=== PATIENT | female | born 1990 | race Caucasian/White ===

== ENCOUNTER 2021-03-23 01:49 | Emergency (ER) | payer OTHER ==
[2021-03-23 02:32] LABS: Urine Blood 1+ (Negative); Urine Glucose Negative (Negative); Urine Protein Negative (Negative)
[2021-03-23 02:50] LABS: Protime INR 0.93
[2021-03-23 02:51] LABS: Absolute Lymphocytes (CBC) 3.4 K/uL (0.7-4.9); Basophils % 0.7 % (0-1.3); Hematocrit 38.8 % (36.0-45.0); Lymphocytes % 32.1 % (15.3-44.8); MPV 8.9 fL (7.6-11.3); RBC Red Blood Cell Count 4.26 M/uL (3.86-4.86)
[2021-03-23 03:21] LABS: ALT/SGPT 43 U/L (12-78); AST/SGOT 21 U/L (15-37); Albumin 3.9 g/dL (3.4-5.0); Alkaline Phosphatase 82 U/L (45-117); BUN Blood Urea Nitrogen 12 mg/dL (7-18); Bicarbonate 23 mmol/L (21-32); Bilirubin Direct 0.1 mg/dL (0-0.2); Bilirubin Total 0.4 mg/dL (0.2-1.0); Glucose Level 73 mg/dL (74-106); Magnesium 1.9 mg/dL (1.8-2.4); NT PRO-BNP 62 pg/mL (<125); Potassium 3.5 mmol/L (3.5-5.1); Protein, Total 7.8 g/dL (6.4-8.2); Sodium Level 143 mmol/L (136-145); Troponin (Emerg Dept Use Only) < 0.02 ng/mL (0.0-0.045)
--- NOTE | 2021-03-23 05:27 | ER ---
Nurse's Notes [facility] Name: Adriel Curry Age: 30 yrs Sex: Female : 1990 Arrival Date: 03/23/2021 Time: 01:56 Bed 3 Private MD: Diagnosis: Nontraumatic subarachnoid hemorrhage, unspecified Presentation: 03/23 01:58 Chief complaint: Patient states: she was having intercourse and felt a sharp pain to as6 her chest and passed out, EMS states pt was unconscious for approx 3-4 minutes, on seen pt was confused, at time of triage pt is AAO X4. Coronavirus screen: At this time, the client does not indicate any symptoms associated with coronavirus-19. Ebola Screen: No symptoms or risks identified at this time. Initial Sepsis Screen: Does the patient meet any 2 criteria? No. Patient's initial sepsis screen is negative. Does the patient have a suspected source of infection? No. Patient's initial sepsis screen is negative. Risk Assessment: Do you want to hurt yourself or someone else? Patient reports no desire to harm self or others. Onset of symptoms was March 23, 2021. 01:58 Method Of Arrival: EMS: [facility] as6 01:58 Acuity: RUFINA 3 as6 02:05 Care prior to arrival: Glucose check: 127. 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 - Social history:: Smoking status: Patient denies any tobacco usage or history of. Screenin:05 Abuse screen: Denies threats or abuse. Nutritional screening: No deficits noted. as6 Tuberculosis screening: No symptoms or risk factors identified. Fall Risk None identified. Assessment: 02:05 General: Appears in no apparent distress. uncomfortable, Behavior is calm, cooperative, as6 drowsy. Pain: Complains of pain in diaphragm and right breast. 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 Cardiovascular: Reports chest pain, Capillary refill < 3 seconds Patient's skin is warm and dry. Respiratory: Airway is patent Trachea midline Respiratory effort is even, unlabored, Respiratory pattern is regular, symmetrical. Derm: Skin is intact, is healthy with good turgor. 03:00 Reassessment: Patient and/or family updated on plan of care and expected duration. Pain mk level reassessed. Patient is alert, oriented x 3, equal unlabored respirations, skin warm/dry/pink. Neuro: Level of Consciousness is awake, alert, obeys commands, Oriented to person, place, time, situation. Cardiovascular: Capillary refill < 3 seconds fingers toes Pulses are 2+ in right radial artery, right dorsalis pedis artery, left radial artery and left dorsalis pedis artery. Respiratory: Respiratory effort is even, unlabored, Respiratory pattern is regular, symmetrical. Derm:. 03:00 Cardiovascular: Reports syncope, Rhythm is sinus rhythm. Respiratory: mk 04:03 Reassessment: Patient and/or family updated on plan of care and expected duration. Pain mk level reassessed. Patient is alert, oriented x 3, equal unlabored respirations, skin warm/dry/pink. Patient states feeling better. 04:03 Neuro: Oriented to person, place, time, situation, Graphic Arts Instructor are equal bilaterally Gait is mk steady, Speech is normal, Facial symmetry appears normal, Pupils are PERRLA. 04:51 Neuro: Reports headache. GI: Reports diarrhea. as6 05:30 Reassessment: Patient and/or family updated on plan of care and expected duration. Pain mk level reassessed. Patient is alert, oriented x 3, equal unlabored respirations, skin warm/dry/pink. Reassessment: Patient and/or family updated on plan of care and expected duration. Pain level reassessed. Neuro: Level of Consciousness is awake, alert, obeys commands, Oriented to person, place, time, situation, Graphic Arts Instructor are equal bilaterally Facial symmetry appears normal, Pupils are PERRLA. Neuro: Facial symmetry appears normal, Pupils are PERRLA, Reports headache. Neuro: Graphic Arts Instructor are equal bilaterally Gait is steady, Facial symmetry appears normal, Pupils are PERRLA. Neuro: Gait is steady. Neuro:. 06:05 Reassessment: Patient and/or family updated on plan of care and expected duration. Pain mk level reassessed. Patient is alert, oriented x 3, equal unlabored respirations, skin warm/dry/pink. Neuro: Level of Consciousness is awake, alert, obeys commands, Oriented to person, place, time, situation. Vital Signs: 01:58 BP 126 / 83; Pulse 86; Resp 21 S; Temp 98.5(O); Pulse Ox 100% on R/A; Weight 63.5 kg as6 (R); Height 5 ft. 3 in. (160.02 cm) (R); Pain 3/10; 03:05 BP 124 / 77; Pulse 76; Resp 18; Pulse Ox 100% on R/A; mk 04:01 BP 109 / 73; Pulse 68; Resp 18 S; Pulse Ox 100% on R/A; as6 05:06 BP 114 / 79; Pulse 70; Resp 18; Pulse Ox 99% on R/A; mk 05:35 BP 126 / 70; Pulse 72; Resp 16; Pulse Ox 99% on R/A; mk 06:05 BP 99 / 67; Pulse 63; Resp 18; Pulse Ox 99% on R/A; mk 06:30 BP 116 / 74; Pulse 71; Resp 18; Pulse Ox 100% on R/A; mk 01:58 Body Mass Index 24.80 (63.50 kg, 160.02 cm) as6 [place] Coma Score: 03:05 Eye Response: spontaneous(4). Verbal Response: oriented(5). Motor Response: obeys mk commands(6). Total: 15. 04:01 Eye Response: spontaneous(4). Verbal Response: oriented(5). Motor Response: obeys mk commands(6). Total: 15. 05:06 Eye Response: spontaneous(4). Verbal Response: oriented(5). Motor Response: obeys mk commands(6). Total: 15. 06:05 Eye Response: spontaneous(4). Verbal Response: oriented(5). Motor Response: obeys mk commands(6). Total: 15. 06:05 Eye Response: spontaneous(4). Verbal Response: oriented(5). Motor Response: obeys mk commands(6). Total: 15. 06:35 Eye Response: spontaneous(4). Verbal Response: oriented(5). Motor Response: obeys mk commands(6). Total: 15. ED Course: 01:56 Patient arrived in ED. bp1 01:58 Patrick Fernandez, RN is Primary Nurse. as6 02:01 Pam Almonte MD is Attending Physician. sp3 02:02 Triage completed. as6 02:04 Arm band placed on. as6 02:06 Bed in low position. Call light in reach. Side rails up X2. vehicle monitor technician on. Pulse as6 ox on. NIBP on. 02:15 No provider procedures requiring assistance completed. Inserted saline lock: 20 gauge mk in left antecubital area, using aseptic technique. Accessed. 02:48 CT Head Brain wo Cont In Process Unspecified. EDMS 02:48 CT Chest For PE Angio In Process Unspecified. EDMS 02:48 Abdomen W Contrast In Process Unspecified. EDMS 04:22 COVID-19 SARS RT PCR (Document "Date of Onset" if Symptomatic) Sent. as6 06:59 Patient transferred, IV remains in place. mk Administered Medications: No medications were administered Outcome: 05:27 ER care complete, transfer ordered by . sp3 06:58 Discharged to 06:58 Transferred by ground EMS to [facility]. 06:58 critical 06:58 Instructed on the need for transfer. 07:00 Patient left the ED. Signatures: Dispatcher [employer] EDMS Palak Caldwell bp1 Pam Almonte MD MD sp3 Patrick Fernandez, RN RN as6 Rylee Palmer RN RN ameya Corrections: (The following items were deleted from the chart) 04:16 04:15 BP 124 / 77; Pulse 76bpm; Resp 18bpm; Pulse Ox 100% RA; mk mk 06:58 02:05 Neuro: Level of Consciousness is awake, alert, obeys commands, Oriented to mk person, place, time, situation, as6 06:58 04:03 Reassessment: Patient and/or family updated on plan of care and expected mk duration. Pain level reassessed. Patient is alert, oriented x 3, equal unlabored respirations, skin warm/dry/pink. Patient states feeling better. as6
--- NOTE | 2021-03-23 05:27 | EDPHYS ---
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 Patient's boyfriend activated EMS and when they arrived patient was weak but coherent with mild tachycardia and continued mild chest pain but no other symptoms. Patient states that the pain is sharp. During the work-up for her vocal cord mass, patient did have a CT scan of the abdomen and pelvis performed which demonstrated "2 lesions on the liver" and gallstones. Patient has not had this or of pain in the past. On review of systems patient denies significant headache, neck pain, back pain, shortness of breath, abdominal pain (though right upper quadrant abdominal pain may be present), dysuria, vomiting, diarrhea, numbness or tingling, change in urine output, or any other review of systems at this time.. 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 - Social history:: Smoking status: Patient denies any tobacco usage or history of. ROS: 02:14 Constitutional: Negative for fever, chills, and weight loss, Eyes: Negative for injury, sp3 pain, redness, and discharge, ENT: Negative for injury, pain, and discharge, Neck: Negative for injury, pain, and swelling, Respiratory: Negative for shortness of breath, cough, wheezing, and pleuritic chest pain, Abdomen/GI: Negative for abdominal pain, nausea, vomiting, diarrhea, and constipation, MS/Extremity: Negative for injury and deformity, Skin: Negative for injury, rash, and discoloration, Psych: Negative for depression, anxiety, suicide ideation, homicidal ideation, and hallucinations, Endocrine: Negative for neck swelling, polydipsia, polyuria, polyphagia, and marked weight changes, Hematologic/Lymphatic: Negative for swollen nodes, abnormal bleeding, and unusual bruising. 02:14 All other systems are negative. Exam: 02:14 Constitutional: This is a well developed, well nourished patient who is awake, alert, sp3 and in no acute distress. Head/Face: Normocephalic, atraumatic. Eyes: Pupils equal round and reactive to light, extra-ocular motions intact. Lids and lashes normal. Conjunctiva and sclera are non-icteric and not injected. Cornea within normal limits. Periorbital areas with no swelling, redness, or edema. ENT: Nares patent. No nasal discharge, no septal abnormalities noted. External auditory canals are clear. Oropharynx with no redness, swelling, or masses, exudates, or evidence of obstruction, uvula midline. Mucous membranes moist. Neck: Trachea midline, no thyromegaly or masses palpated, and no cervical lymphadenopathy. Supple, full range of motion without nuchal rigidity, or vertebral point tenderness. No Meningismus. Chest/axilla: Normal chest wall appearance and motion. Nontender with no deformity. No lesions are appreciated. Cardiovascular: Regular rate and rhythm with a normal S1 and S2. No gallops, murmurs, or rubs. Normal PMI, no JVD. No pulse deficits. Respiratory: Lungs have equal breath sounds bilaterally, clear to auscultation and percussion. No rales, rhonchi or wheezes noted. No increased work of breathing, no retractions or nasal flaring. Back: No spinal tenderness. No costovertebral tenderness. Full range of motion. Skin: Warm, dry with normal turgor. Normal color with no rashes, no lesions, and no evidence of cellulitis. MS/ Extremity: Pulses equal, no cyanosis. Neurovascular intact. Full, normal range of motion. Neuro: Awake and alert, GCS 15, oriented to person, place, time, and situation. Cranial nerves II-XII grossly intact. Motor strength 5/5 in all extremities. Sensory grossly intact. Cerebellar exam normal. Normal gait. Psych: Awake, alert, with orientation to person, place and time. Behavior, mood, and affect are within normal limits. 02:14 Abdomen/GI: Patient has mild right upper quadrant pain on deep palpation. It is the same pain she describes as in her "chest" on the right lower side. Lung exams are normal bilaterally. Cardiac exam is also normal with no murmurs rubs or gallops.. 02:17 ECG was reviewed by the Attending Physician. EKG demonstrates normal sinus rhythm 98 sp3 bpm with normal intervals, normal axis, normal QRS, nonspecific ST/T changes without evidence of acute ischemia. Vital Signs: 01:58 BP 126 / 83; Pulse 86; Resp 21 S; Temp 98.5(O); Pulse Ox 100% on R/A; Weight 63.5 kg as6 (R); Height 5 ft. 3 in. (160.02 cm) (R); Pain 3/10; 03:05 BP 124 / 77; Pulse 76; Resp 18; Pulse Ox 100% on R/A; mk 04:01 BP 109 / 73; Pulse 68; Resp 18 S; Pulse Ox 100% on R/A; as6 05:06 BP 114 / 79; Pulse 70; Resp 18; Pulse Ox 99% on R/A; mk 05:35 BP 126 / 70; Pulse 72; Resp 16; Pulse Ox 99% on R/A; mk 06:05 BP 99 / 67; Pulse 63; Resp 18; Pulse Ox 99% on R/A; mk 06:30 BP 116 / 74; Pulse 71; Resp 18; Pulse Ox 100% on R/A; mk 01:58 Body Mass Index 24.80 (63.50 kg, 160.02 cm) as6 [place] Coma Score: 03:05 Eye Response: spontaneous(4). Verbal Response: oriented(5). Motor Response: obeys mk commands(6). Total: 15. 04:01 Eye Response: spontaneous(4). Verbal Response: oriented(5). Motor Response: obeys mk commands(6). Total: 15. 05:06 Eye Response: spontaneous(4). Verbal Response: oriented(5). Motor Response: obeys mk commands(6). Total: 15. 06:05 Eye Response: spontaneous(4). Verbal Response: oriented(5). Motor Response: obeys mk commands(6). Total: 15. 06:05 Eye Response: spontaneous(4). Verbal Response: oriented(5). Motor Response: obeys mk commands(6). Total: 15. 06:35 Eye Response: spontaneous(4). Verbal Response: oriented(5). Motor Response: obeys mk commands(6). Total: 15. MDM: 02:01 Patient medically screened. sp3 02:15 Data reviewed: vital signs, nurses notes. ED course: 30-year-old female with chest pain sp3 and near syncope during intercourse. Differential diagnosis includes pulmonary embolism, cortical/exertional syncope, cholelithiasis, cholecystitis, dehydration. At this time I am not highly suspicious for acute coronary syndrome, CVA, vascular compromise, sepsis, shock, any other critical findings. Will obtain CT scan of the chest with abdomen runoff, standard laboratory values, EKG. Patient declined pain medications at this time. We will keep n.p.o. pending remainder of work-up and ultimate disposition.. 04:09 ED course: Patient CT scan of the head demonstrates a small left subarachnoid sp3 hemorrhage along the left frontal convexity. There is no midline shift or significant bleed. Patient's blood pressure vital signs are normal patient is resting comfortably with a mild headache. [facility] and treatment.. 05:21 ED course: Discussed with Dr. Lua on behalf of Dr. Mar at [facility] who sp3 has graciously accepted this patient.. 03/23 02:03 Order name: Basic Metabolic Panel sp3 03/23 02:03 Order name: CBC with Diff; Complete Time: 03:18 sp3 03/23 02:03 Order name: LFT's; Complete Time: 03:49 sp3 03/23 02:03 Order name: Magnesium; Complete Time: 03:49 sp3 03/23 02:03 Order name: NT PRO-BNP; Complete Time: 03:49 sp3 03/23 02:03 Order name: PT-INR; Complete Time: 03:18 sp3 03/23 02:03 Order name: Troponin (emerg Dept Use Only); Complete Time: 03:49 sp3 03/23 02:03 Order name: CT Head Brain wo Cont sp3 03/23 02:03 Order name: Basic Metabolic Panel; Complete Time: 03:49 EDMS 03/23 02:31 Order name: Urine Dipstick-Ancillary; Complete Time: 03:18 EDMS 03/23 02:41 Order name: Urine --Ancillary (enter results) cs9 03/23 02:42 Order name: Urine --Ancillary EDMS 03/23 03:25 Order name: CREATININE WHOLE BLOOD; Complete Time: 03:49 EDMS 03/23 04:16 Order name: COVID-19 SARS RT PCR (Document "Date of Onset" if Symptomatic) as6 03/23 02:03 Order name: EKG; Complete Time: 02:03 sp3 03/23 02:03 Order name: Cardiac monitoring; Complete Time: 02:04 sp3 03/23 02:03 Order name: EKG - Nurse/Tech; Complete Time: 02:04 sp3 03/23 02:03 Order name: IV Saline Lock; Complete Time: 02:09 sp3 03/23 02:03 Order name: Labs collected and sent; Complete Time: 02:34 sp3 03/23 02:03 Order name: O2 Per Protocol; Complete Time: 02:04 sp3 03/23 02:03 Order name: O2 Sat Monitoring; Complete Time: 02:04 sp3 03/23 02:03 Order name: CT Chest For PE Angio sp3 03/23 02:03 Order name: NPO; Complete Time: 02:09 sp3 03/23 02:03 Order name: Urine Dipstick-Ancillary (obtain specimen); Complete Time: 02:31 sp3 03/23 02:03 Order name: Urine Test (obtain specimen); Complete Time: 02:31 sp3 03/23 02:13 Order name: Abdomen W Contrast EDMS Administered Medications: No medications were administered Disposition Summary: 03/23/21 05:27 Transfer Ordered Transfer Location: [facility] sp3 Reason: Higher level of care sp3 Condition: Stable sp3 Problem: new sp3 Symptoms: are unchanged sp3 Accepting Physician: Dr. Magdaleno(03/23/21 07:00) mk Diagnosis - Nontraumatic subarachnoid hemorrhage, unspecified sp3 Forms: - Medication Reconciliation Form sp3 - SBAR form sp3 Signatures: Dispatcher [employer] EDMS Pam Almonte, MD MD sp3 Patrick Fernandez RN RN as6 Rylee Palmer RN RN mk Corrections: (The following items were deleted from the chart) 07:00 05:27 Dr. Sharla avalos mk 07:00 07:00 Dr. Sharla hou mk
[2021-03-23 07:07] VITALS: TEMP 98.5
[2021-03-23 07:16] VITALS: BP 116/74; O2SAT 100
--- NOTE | 2021-03-23 11:01 | RAD REPORT ---
EXAM DESCRIPTION: CT - Abdomen W Contrast - 03/23/2021 6:23 am ADDENDUM #1 THIS REPORT CONTAINS FINDINGS THAT MAY BE CRITICAL TO PATIENT CARE: The findings were verbally discu ssed via telephone conference with Dr. Almonte by Dr. Nahid Spain on 03/23/2021 4:01 AM CLINICAL EDUCATION MANAGER .Th e results were acknowledged and understood. Electronically signed by: Nahid Spain MD 03/23/2021 6:46 AM CLINICAL EDUCATION MANAGER End of Addendum EXAM DESCRIPTION: CT Head Without Intravenous Contrast CLINICAL HISTORY: The patient is 30 years old and is Female; ABD PAIN TECHNIQUE: Axial computed tomography images of the head/brain without intravenous contrast. Sagitt al and coronal reformatted images were created and reviewed. This CT exam was performed using one o r more of the following dose reduction techniques: automated exposure control, adjustment of the mA and/or kV according to patient size, and/or use of iterative reconstruction technique. COMPARISON: No relevant prior studies available. FINDINGS: Brain: Small focus of acute subarachnoid hemorrhage along the left frontal convexity, im age 14 series 201, image 19 series 203. Ventricles: Unremarkable. No ventriculomegaly. Bones/joints: Unremarkable. No acute fracture. Soft tissues: Unremarkable. Sinuses: Unremarkable as visualized. Mastoid air cells: Unremarkable as visualized. No mastoid effusion. * A single impression for all exams can be found at the end of this report EXAM DESCRIPTION: CT Angiography Chest With Intravenous Contrast CLINICAL HISTORY: The patient is 30 years old and is Female; ABD PAIN TECHNIQUE: Axial computed tomographic angiography images of the chest with intravenous contrast. Sagittal and coronal reformatted images were created and reviewed. This CT exam was performed usin g one or more of the following dose reduction techniques: automated exposure control, adjustment of the mA and/or kV according to patient size, and/or use of iterative reconstruction technique. MIP reconstructed images were created and reviewed. COMPARISON: No relevant prior studies available. FINDINGS: Pulmonary arteries: Unremarkable. No pulmonary embolism. Aorta: No acute findings. No thoracic aortic aneurysm. Lungs: Unremarkable. No mass. No consolidation. Pleural space: Unremarkable. No significant effusion. No pneumothorax. Heart: Unremarkable. No cardiomegaly. No significant pericardial effusion. No evidence of RV dysfunction. Bones/joints: No acute fracture. No dislocation. Soft tissues: Unremarkable. Lymph nodes: Unremarkable. No enlarged lymph nodes. * A single impression for all exams can be found at the end of this report EXAM DESCRIPTION: CT Abdomen With Intravenous Contrast CLINICAL HISTORY: The patient is 30 years old and is Female; ABD PAIN TECHNIQUE: Axial computed tomography images of the abdomen with intravenous contrast. Sagittal and coronal reformatted images were created and reviewed. This CT exam was performed using one or more of the following dose reduction techniques: automated exposure control, adjustment of the mA and/o r kV according to patient size, and/or use of iterative reconstruction technique. COMPARISON: No relevant prior studies available. FINDINGS: Lung bases: Unremarkable. No mass. No consolidation. Liver: Unremarkable. No mass. Gallbladder and bile ducts: Unremarkable. No calcified stones. No ductal dilation. Pancreas: Unremarkable. No mass. No ductal dilation. Spleen: Unremarkable. No splenomegaly. Adrenals: Unremarkable. No mass. Kidneys and ureters: Unremarkable. No solid mass. No hydronephrosis. Stomach and bowel: Unremarkable. No obstruction. No mucosal thickening. Intraperitoneal space: Unremarkable. No free air. No significant fluid collection. Bones/joints: No acute fracture. No dislocation. Soft tissues: Unremarkable. Vasculature: Unremarkable. No abdominal aortic aneurysm. Lymph nodes: Unremarkable. No enlarged lymph nodes. * A single impression for all exams can be found at the end of this report IMPRESSION: CT Head Without Intravenous Contrast: Small focus of acute subarachnoid hemorrhage along the left frontal convexity, image 14 series 201 , image [address] Angiography Chest With Intravenous Contrast: No acute finding in chest. CT Abdomen With Intravenous Contrast: No acute finding in the abdomen. Electronically signed by: Nahid Spain MD 03/23/2021 3:46 AM CLINICAL EDUCATION MANAGER Due to temporary technical issues with the PACS/Fluency reporting system, reports are being signed by the in house radiologist without review as a courtesy to ensure prompt reporting. The interpreting r adiologist is fully responsible for the content of the report.
--- NOTE | 2021-03-23 11:03 | RAD REPORT ---
EXAM DESCRIPTION: CT - Chest For Pe Angio - 03/23/2021 6:24 am ADDENDUM #1 THIS REPORT CONTAINS FINDINGS THAT MAY BE CRITICAL TO PATIENT CARE: The findings were verbally discu ssed via telephone conference with Dr. Almonte by Dr. Nahid Spain on 03/23/2021 4:01 AM POCKETED SPRING MACHINE OPERATOR .Th e results were acknowledged and understood. Electronically signed by: Nahid Spain MD 03/23/2021 6:46 AM POCKETED SPRING MACHINE OPERATOR End of Addendum EXAM DESCRIPTION: CT Head Without Intravenous Contrast CLINICAL HISTORY: The patient is 30 years old and is Female; ABD PAIN TECHNIQUE: Axial computed tomography images of the head/brain without intravenous contrast. Sagitt al and coronal reformatted images were created and reviewed. This CT exam was performed using one o r more of the following dose reduction techniques: automated exposure control, adjustment of the mA and/or kV according to patient size, and/or use of iterative reconstruction technique. COMPARISON: No relevant prior studies available. FINDINGS: Brain: Small focus of acute subarachnoid hemorrhage along the left frontal convexity, im age 14 series 201, image 19 series 203. Ventricles: Unremarkable. No ventriculomegaly. Bones/joints: Unremarkable. No acute fracture. Soft tissues: Unremarkable. Sinuses: Unremarkable as visualized. Mastoid air cells: Unremarkable as visualized. No mastoid effusion. * A single impression for all exams can be found at the end of this report EXAM DESCRIPTION: CT Angiography Chest With Intravenous Contrast CLINICAL HISTORY: The patient is 30 years old and is Female; ABD PAIN TECHNIQUE: Axial computed tomographic angiography images of the chest with intravenous contrast. S agittal and coronal reformatted images were created and reviewed. This CT exam was performed using one or more of the following dose reduction techniques: automated exposure control, adjustment of t he mA and/or kV according to patient size, and/or use of iterative reconstruction technique. MIP rec onstructed images were created and reviewed. COMPARISON: No relevant prior studies available. FINDINGS: Pulmonary arteries: Unremarkable. No pulmonary embolism. Aorta: No acute findings. No thoracic aortic aneurysm. Lungs: Unremarkable. No mass. No consolidation. Pleural space: Unremarkable. No significant effusion. No pneumothorax. Heart: Unremarkable. No cardiomegaly. No significant pericardial effusion. No evidence of RV dysfunction. Bones/joints: No acute fracture. No dislocation. Soft tissues: Unremarkable. Lymph nodes: Unremarkable. No enlarged lymph nodes. * A single impression for all exams can be found at the end of this report EXAM DESCRIPTION: CT Abdomen With Intravenous Contrast CLINICAL HISTORY: The patient is 30 years old and is Female; ABD PAIN TECHNIQUE: Axial computed tomography images of the abdomen with intravenous contrast. Sagittal and coronal reformatted images were created and reviewed. This CT exam was performed using one or more of the following dose reduction techniques: automated exposure control, adjustment of the mA and/or kV according to patient size, and/or use of iterative reconstruction technique. COMPARISON: No relevant prior studies available. FINDINGS: Lung bases: Unremarkable. No mass. No consolidation. Liver: Unremarkable. No mass. Gallbladder and bile ducts: Unremarkable. No calcified stones. No ductal dilation. Pancreas: Unremarkable. No mass. No ductal dilation. Spleen: Unremarkable. No splenomegaly. Adrenals: Unremarkable. No mass. Kidneys and ureters: Unremarkable. No solid mass. No hydronephrosis. Stomach and bowel: Unremarkable. No obstruction. No mucosal thickening. Intraperitoneal space: Unremarkable. No free air. No significant fluid collection. Bones/joints: No acute fracture. No dislocation. Soft tissues: Unremarkable. Vasculature: Unremarkable. No abdominal aortic aneurysm. Lymph nodes: Unremarkable. No enlarged lymph nodes. * A single impression for all exams can be found at the end of this report IMPRESSION: CT Head Without Intravenous Contrast: Small focus of acute subarachnoid hemorrhage along the left frontal convexity, image 14 series 201 , image [address] Angiography Chest With Intravenous Contrast: No acute finding in chest. CT Abdomen With Intravenous Contrast: No acute finding in the abdomen. Electronically signed by: Nahid Spain MD 03/23/2021 3:46 AM POCKETED SPRING MACHINE OPERATOR Due to temporary technical issues with the PACS/Fluency reporting system, reports are being signed by the in house radiologist without review as a courtesy to ensure prompt reporting. The interpreting r adiologist is fully responsible for the content of the report.
--- NOTE | 2021-03-23 11:04 | RAD REPORT ---
EXAM DESCRIPTION: CT - Head Brain Wo Cont - 03/23/2021 6:25 am ADDENDUM #1 THIS REPORT CONTAINS FINDINGS THAT MAY BE CRITICAL TO PATIENT CARE: The findings were verbally discu ssed via telephone conference with Dr. Almonte by Dr. Nahid Spain on 03/23/2021 4:01 AM PLASMA PROCESSING TECHNICIAN .Th e results were acknowledged and understood. Electronically signed by: Nahid Spain MD 03/23/2021 6:46 AM PLASMA PROCESSING TECHNICIAN End of Addendum EXAM DESCRIPTION: CT Head Without Intravenous Contrast CLINICAL HISTORY: The patient is 30 years old and is Female; ABD PAIN TECHNIQUE: Axial computed tomography images of the head/brain without intravenous contrast. Sagitt al and coronal reformatted images were created and reviewed. This CT exam was performed using one o r more of the following dose reduction techniques: automated exposure control, adjustment of the mA and/or kV according to patient size, and/or use of iterative reconstruction technique. COMPARISON: No relevant prior studies available. FINDINGS: Brain: Small focus of acute subarachnoid hemorrhage along the left frontal convexity, im age 14 series 201, image 19 series 203. Ventricles: Unremarkable. No ventriculomegaly. Bones/joints: Unremarkable. No acute fracture. Soft tissues: Unremarkable. Sinuses: Unremarkable as visualized. Mastoid air cells: Unremarkable as visualized. No mastoid effusion. * A single impression for all exams can be found at the end of this report EXAM DESCRIPTION: CT Angiography Chest With Intravenous Contrast CLINICAL HISTORY: The patient is 30 years old and is Female; ABD PAIN TECHNIQUE: Axial computed tomographic angiography images of the chest with intravenous contrast. S agittal and coronal reformatted images were created and reviewed. This CT exam was performed using one or more of the following dose reduction techniques: automated exposure control, adjustment of t he mA and/or kV according to patient size, and/or use of iterative reconstruction technique. MIP rec onstructed images were created and reviewed. COMPARISON: No relevant prior studies available. FINDINGS: Pulmonary arteries: Unremarkable. No pulmonary embolism. Aorta: No acute findings. No thoracic aortic aneurysm. Lungs: Unremarkable. No mass. No consolidation. Pleural space: Unremarkable. No significant effusion. No pneumothorax. Heart: Unremarkable. No cardiomegaly. No significant pericardial effusion. No evidence of RV dysfunction. Bones/joints: No acute fracture. No dislocation. Soft tissues: Unremarkable. Lymph nodes: Unremarkable. No enlarged lymph nodes. * A single impression for all exams can be found at the end of this report EXAM DESCRIPTION: CT Abdomen With Intravenous Contrast CLINICAL HISTORY: The patient is 30 years old and is Female; ABD PAIN TECHNIQUE: Axial computed tomography images of the abdomen with intravenous contrast. Sagittal and coronal reformatted images were created and reviewed. This CT exam was performed using one or more of the following dose reduction techniques: automated exposure control, adjustment of the mA and/or kV according to patient size, and/or use of iterative reconstruction technique. COMPARISON: No relevant prior studies available. FINDINGS: Lung bases: Unremarkable. No mass. No consolidation. Liver: Unremarkable. No mass. Gallbladder and bile ducts: Unremarkable. No calcified stones. No ductal dilation. Pancreas: Unremarkable. No mass. No ductal dilation. Spleen: Unremarkable. No splenomegaly. Adrenals: Unremarkable. No mass. Kidneys and ureters: Unremarkable. No solid mass. No hydronephrosis. Stomach and bowel: Unremarkable. No obstruction. No mucosal thickening. Intraperitoneal space: Unremarkable. No free air. No significant fluid collection. Bones/joints: No acute fracture. No dislocation. Soft tissues: Unremarkable. Vasculature: Unremarkable. No abdominal aortic aneurysm. Lymph nodes: Unremarkable. No enlarged lymph nodes. * A single impression for all exams can be found at the end of this report IMPRESSION: CT Head Without Intravenous Contrast: Small focus of acute subarachnoid hemorrhage along the left frontal convexity, image 14 series 201 , image [address] Angiography Chest With Intravenous Contrast: No acute finding in chest. CT Abdomen With Intravenous Contrast: No acute finding in the abdomen. Electronically signed by: Nahid Spain MD 03/23/2021 3:46 AM PLASMA PROCESSING TECHNICIAN Due to temporary technical issues with the PACS/Fluency reporting system, reports are being signed by the in house radiologist without review as a courtesy to ensure prompt reporting. The interpreting r adiologist is fully responsible for the content of the report.
== END 2021-03-23 07:00 | disposition short-term general hospital (02) ==
LOC: ER 01:49
DX: I60.9 Nontraumatic subarachnoid hemorrhage, unspecified (principal); Z88.5 Allergy status to narcotic agent; Z20.822 Contact with and (suspected) exposure to COVID-19
CPT/HCPCS: 93005; 85025; 80048; 36415; 83735; 81025; 85610; 82565; 80076; 81003; 84484; 83880; 74160; 70450; 71275; 99285; U0003; Q9967

== ENCOUNTER 2022-01-06 13:08 | Emergency (ER) | payer BC, OTHER ==
[2022-01-06] MEDS ORDERED: LEVETIRACETAM 500 MG/5 ML VIAL IV ONE (13:28)
[2022-01-06] MEDS ORDERED: NA CHLORIDE 0.9% 100 ML IV ONE (13:34)
[2022-01-06 13:57] LABS: SARS-CoV-2 Antigen Rapid Res Negative (Negative)
--- NOTE | 2022-01-06 13:57 | RAD REPORT ---
EXAM DESCRIPTION: CT - Ct Stroke Brain Wo Cont - 01/06/2022 1:48 pm CLINICAL HISTORY: hx of bleed with watson, provided clinical history indicates subarachnoid hemorrhage e vent (March 2021) with patient reporting aneurysm diagnosis. No history of surgical repair for end ovascular fixation of an aneurysm. COMPARISON: Head Brain Wo Cont dated 03/23/2021 TECHNIQUE: Axial 5 millimeter thick images of the head were obtained without IV contrast. All CT scans are performed using dose optimization technique as appropriate and may include automated exposure control or mA/KV adjustment according to patient size. FINDINGS: No subarachnoid hemorrhage is identified. In the area of subarachnoid hemorrhage reported on the March 2021 CT, no acute finding is seen. No acute cortical based infarction, cortical edema or sulcal effacement seen. No extra-axial fluid collections. Flores matter-white matter differentiati on is preserved.Ventricles are normal. Visualized portions of the mastoid air cells, paranasal sinuses, and orbits are unremarkable. Findings telephoned to Adrianna Davila 1331 hours. IMPRESSION: No CT evidence of acute intracranial process. No findings for recurrence of the previously detailed subarachnoid hemorrhage.
[2022-01-06 14:19] LABS: Absolute Lymphocytes (CBC) 2.6 K/uL (0.7-4.9); Hematocrit 39.4 % (36.0-45.0); Lymphocytes % 28.7 % (15.3-44.8); MPV 8.9 fL (7.6-11.3); RBC Red Blood Cell Count 4.38 M/uL (3.86-4.86)
[2022-01-06 14:24] LABS: Protime INR 1.04
[2022-01-06 14:32] LABS: Potassium 3.7 mmol/L (3.5-5.1)
--- NOTE | 2022-01-06 14:32 | RAD REPORT ---
EXAM DESCRIPTION: CT - Head angio - 01/06/2022 2:13 pm CLINICAL HISTORY: Headache, subarachnoid hemorrhage reported on a March 2021 CT. Patient was guzman sferred at time of the March 2021 event. Patient reports and aneurysm diagnosis but there has been no apparent treatment. TECHNIQUE: During dynamic enhancement using nonionic IV contrast, axial 1 millimeter thick images of the head were obtained. Sagittal and axial reconstruction images were generated using MIP technique and reviewed. All CT scans are performed using dose optimization technique as appropriate and may include automated exposure control or mA/KV adjustment according to patient size.Sign COMPARISON: CT head 01/06/2022, CT head 03/23/2021 FINDINGS: No aneurysm clip or endovascular coils identifiable. No aneurysm is identified. No vascular malformation seen. Major venous sinuses are patent. No stenosis, named branch occlusion, vasculitis or other significant vascular finding identifiable. The right A1 anterior cerebral artery segment is dominant with a small left A1 RAMONA. Anterior communic ating artery is present. This is a normal anatomic configuration. Patient has a small left P1 posteri or cerebral artery segment. Left posterior communicating artery supplies much of the left EXTRUSION DIE REPAIR MANAGER circula tion. Again, this is normal anatomic variation. IMPRESSION: No aneurysm or vascular malformation identified. No correlate is identifiable for the p atient reported aneurysm diagnosis. No vascular malformation or abnormal vascular finding. No endovascular coils or aneurysm clip present .
--- NOTE | 2022-01-06 14:37 | RAD REPORT ---
EXAM DESCRIPTION: RAD - Chest Single View - 01/06/2022 2:32 pm CLINICAL HISTORY: COUGH, Stroke protocol chest film COMPARISON: CT chest March 2021 TECHNIQUE: AP portable chest image was obtained 01/06/2022 2:32 pm . FINDINGS: Lungs are clear. Heart and vasculature are normal. No measurable pleural effusion and no p neumothorax. No acute bony abnormality seen. No acute aortic findings suspected. IMPRESSION: No acute cardiopulmonary process.
[2022-01-06] MEDS ORDERED: ACETAMIN/CAFFEINE/BUTALB TAB PO ONE (14:53)
[2022-01-06] MEDS ORDERED: KETOROLAC 30 MG/ML INJ ONE (14:54)
[2022-01-06 16:00] LABS: Urine Blood Negative (Negative); Urine Glucose Negative (Negative); Urine Protein Negative (Negative); Urine Specific Gravity 1.015 (1.005-1.030); Urine pH 7.5 (5.0-7.0)
[2022-01-06 16:15] LABS: Barbiturates NEGATIVE (NEGATIVE); Benzodiazepines NEGATIVE (NEGATIVE); Cocaine NEGATIVE (NEGATIVE); METHAMPHETAM NEGATIVE (NEGATIVE); Methadone NEGATIVE (NEGATIVE); Opiates NEGATIVE (NEGATIVE); Phencyclidine NEGATIVE (NEGATIVE); THC Cannibis NEGATIVE (NEGATIVE)
[2022-01-06 17:25] LABS: Urine Specific Gravity/Preg 1.015 (1.005-1.030)
[2022-01-06] MEDS ORDERED: MAGNESIUM SULFATE 1 gm IVPB 1 GM/100 ML BAG IV ONE (18:03)
--- NOTE | 2022-01-06 19:23 | EDPHYS ---
Physician Documentation [facility] Name: Adriel Curry Age: 31 yrs Sex: Female : 1990 Arrival Date: 01/06/2022 Time: 13:08 Bed 2 Private MD: Dinah Copeland ED Physician Lia Diaz HPI: 01/06 13:23 This 31 yrs old Female presents to ER via Ambulatory with complaints of Headache, snw Dizziness, Blurred Vision. 13:23 The patient complains of pain to the top of head and forehead. The patient describes snw the headache as pounding. Onset: The symptoms/episode began/occurred suddenly, yesterday. Associated signs and symptoms: Pertinent positives: dizziness, malaise, blurred vision. Severity of symptoms: At its worst the pain was moderate, severe, in the emergency department the pain is unchanged. Headache History: Other prior ruptured aneurysm. The patient has experienced a previous episode. The patient has not recently seen a physician. 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 - Social history:: Smoking status: Patient denies any tobacco usage or history of. ROS: 13:21 ENT: Negative for injury, pain, and discharge, Neck: Negative for injury, pain, and snw swelling, Cardiovascular: Negative for chest pain, palpitations, and edema, Respiratory: Negative for shortness of breath, cough, wheezing, and pleuritic chest pain, Abdomen/GI: Negative for abdominal pain, nausea, vomiting, diarrhea, and constipation, Back: Negative for injury and pain, : Negative for injury, bleeding, discharge, and swelling. 13:21 Skin: Negative for injury, rash, and discoloration, Neuro: Negative for headache, weakness, numbness, tingling, and seizure, Psych: Negative for depression, anxiety, suicide ideation, homicidal ideation, and hallucinations. 13:21 Constitutional: Positive for fatigue, malaise. 13:21 Eyes: Positive for blurry vision, visual disturbance. 13:21 MS/extremity: Positive for paresthesias. 13:21 Neuro: Positive for headache, tingling, weakness. Exam: 13:18 Head/Face: Normocephalic, atraumatic. Eyes: Pupils equal round and reactive to light, snw extra-ocular motions intact. Lids and lashes normal. Conjunctiva and sclera are non-icteric and not injected. Cornea within normal limits. Periorbital areas with no swelling, redness, or edema. ENT: Nares patent. No nasal discharge, no septal abnormalities noted. Tympanic membranes are normal and external auditory canals are clear. Oropharynx with no redness, swelling, or masses, exudates, or evidence of obstruction, uvula midline. Mucous membranes moist. Neck: Trachea midline, no thyromegaly or masses palpated, and no cervical lymphadenopathy. Supple, full range of motion without nuchal rigidity, or vertebral point tenderness. No Meningismus. Chest/axilla: Normal chest wall appearance and motion. Nontender with no deformity. No lesions are appreciated. Cardiovascular: Regular rate and rhythm with a normal S1 and S2. No gallops, murmurs, or rubs. Normal PMI, no JVD. No pulse deficits. Respiratory: Lungs have equal breath sounds bilaterally, clear to auscultation and percussion. No rales, rhonchi or wheezes noted. No increased work of breathing, no retractions or nasal flaring. Abdomen/GI: Soft, non-tender, with normal bowel sounds. No distension or tympany. No guarding or rebound. No evidence of tenderness throughout. Back: No spinal tenderness. No costovertebral tenderness. Full range of motion. Skin: Warm, dry with normal turgor. Normal color with no rashes, no lesions, and no evidence of cellulitis. MS/ Extremity: Pulses equal, no cyanosis. Neurovascular intact. Full, normal range of motion. Psych: Awake, alert, with orientation to person, place and time. Behavior, mood, and affect are within normal limits. 13:18 Constitutional: The patient appears alert, awake, uncomfortable. 13:18 Neuro: Orientation: is normal, Mentation: is normal, Sensation: is normal, seizure activity, is not displayed by the patient. Vital Signs: 13:13 BP 137 / 93; Pulse 72; Resp 16; Temp 98.1(TE); Pulse Ox 100% on R/A; Weight 63.5 kg bm7 (R); Height 5 ft. 3 in. (160.02 cm); Pain 10/10; 14:30 BP 114 / 72; Pulse 54; Resp 19; Pulse Ox 100% on R/A; tp1 15:38 BP 147 / 80; Pulse 81; Resp 18; Pulse Ox 100% on R/A; tp1 16:08 BP 119 / 82; Pulse 47; Resp 14; Pulse Ox 100% on R/A; tp1 17:08 BP 104 / 84; Pulse 62; Resp 15; Pulse Ox 100% on R/A; dh3 17:11 BP 103 / 65; Pulse 57; Resp 18; Temp 98.1; Pulse Ox 100% ; zm 17:24 BP 121 / 82 Supine; Pulse 52; vg1 17:26 BP 125 / 93 Sitting; Pulse 67; vg1 17:28 BP 120 / 92 Standing; Pulse 72; vg1 18:35 BP 113 / 79; Pulse 50; Resp 12; Pulse Ox 99% on R/A; tp1 19:43 BP 115 / 70; Pulse 60; Resp 15; Pulse Ox 99% on R/A; Pain 0/10; ke1 13:13 Body Mass Index 24.80 (63.50 kg, 160.02 cm) bm7 NIH Stroke Scale Scores: 13:50 NIHSS Score: 2 ld1 19:00 NIHSS Score: 0 ke1 [place] Coma Score: 19:14 Eye Response: spontaneous(4). Verbal Response: oriented(5). Motor Response: obeys snw commands(6). Total: 15. MDM: 13:25 Patient medically screened. snw 19:14 Data reviewed: vital signs, nurses notes. Data interpreted: Pulse oximetry: on room air snw is 99 %. Interpretation: normal. Counseling: I had a detailed discussion with the patient and/or guardian regarding: the historical points, exam findings, and any diagnostic results supporting the discharge/admit diagnosis, lab results, radiology results, the need for outpatient follow up, to return to the emergency department if symptoms worsen or persist or if there are any questions or concerns that arise at home. Response to treatment: the patient's symptoms have markedly improved after treatment. Special discussion: Based on the history and exam findings, there is no indication for further emergent testing or inpatient evaluation. I discussed with the patient/guardian the need to see the primary care provider for further evaluation of the symptoms. 01/06 13:21 Order name: SARS RAPID w 01/06 13:21 Order name: Basic Metabolic Panel w 01/06 13:21 Order name: CBC with Diff snw 01/06 13:21 Order name: Magnesium w 01/06 13:21 Order name: Protime (+inr) w 01/06 13:21 Order name: Ptt, Activated w 01/06 13:21 Order name: UDS [facility] 01/06 13:46 Order name: Glucose, Ancillary Testing; Complete Time: 13:47 EDMS 01/06 13:57 Order name: SARS-COV-2 Antigen Rapid; Complete Time: 14:05 EDMS 01/06 14:20 Order name: CBC with Automated Diff; Complete Time: 14:39 EDMS 01/06 14:24 Order name: Protime (+INR); Complete Time: 14:39 EDMS 01/06 14:25 Order name: PTT, Activated Partial Thromb; Complete Time: 14:39 EDMS 01/06 14:32 Order name: Basic Metabolic Panel; Complete Time: 14:39 EDMS 01/06 14:32 Order name: Magnesium; Complete Time: 14:39 EDMS 01/06 13:21 Order name: CT Stroke Brain w/o Contrast [facility] 01/06 13:21 Order name: Stroke CXR 1 View [facility] 01/06 13:50 Order name: CT Head Angio [facility] 01/06 13:58 Order name: CT; Complete Time: 14:05 EDMS 01/06 14:33 Order name: CT; Complete Time: 14:39 EDMS 01/06 14:38 Order name: RAD; Complete Time: 14:39 EDMS 01/06 15:43 Order name: CPK vg1 01/06 16:00 Order name: Urine Dipstick-Ancillary; Complete Time: 16:22 EDMS 01/06 16:02 Order name: Urine --Ancillary (enter results) em1 01/06 16:15 Order name: Urine Drug Screen; Complete Time: 16:22 EDMS 01/06 16:22 Order name: Creatine Phosphokinase; Complete Time: 16:22 EDMS 01/06 17:25 Order name: Urine --Ancillary; Complete Time: 17:33 EDMS 01/06 17:56 Order name: Strep snw 01/06 19:01 Order name: Group A Streptococcus Rapid Sc; Complete Time: 19:08 EDMS 01/06 13:21 Order name: EKG; Complete Time: 13:22 snw 01/06 13:21 Order name: Accucheck; Complete Time: 13:41 snw 01/06 13:21 Order name: Cardiac monitoring; Complete Time: 14:15 snw 01/06 13:21 Order name: EKG - Nurse/Tech; Complete Time: 13:37 snw 01/06 13:21 Order name: IV Saline Lock; Complete Time: 14:04 snw 01/06 13:21 Order name: Labs collected and sent; Complete Time: 14:04 snw 01/06 13:21 Order name: NPO; Complete Time: 14:15 snw 01/06 13:21 Order name: O2 Per Protocol; Complete Time: 14:15 snw 01/06 13:21 Order name: O2 Sat Monitoring; Complete Time: 14:15 snw 01/06 13:21 Order name: Stroke Swallow Screen; Complete Time: 14:15 snw 01/06 16:23 Order name: Recheck Vital Signs; Complete Time: 17:12 snw 01/06 17:18 Order name: Orthostatics; Complete Time: 17:34 snw EC:40 Rate is 72 beats/min. Rhythm is regular. QRS [place] is Normal. MI interval is normal. QRS snw interval is normal. QT interval is normal. No Q waves. T waves are Normal. No ST changes noted. Clinical impression: NSR w/ Non-specific ST/T Changes. Administered Medications: 14:23 Drug: Keppra (levETIRAcetam) 20 mg/kg Route: IV; Rate: calculated rate; Site: left vg1 forearm; 14:40 Follow up: IV Status: Completed infusion; IV Intake: 100ml vg1 14:55 Drug: Ketorolac 30 mg Route: IVP; Site: left antecubital; aa5 15:06 Follow up: Response: No adverse reaction aa5 15:25 Follow up: Response: Pain is unchanged, physician notified tp1 14:55 Drug: Fioricet - Esgic 325 mg-40 mg-50 mg 1 tab-caps Route: PO; aa5 18:39 Follow up: Response: No adverse reaction tp1 18:08 Drug: Magnesium Sulfate 1 grams Route: IVPB; Infused Over: 1 hrs; Site: left jl7 antecubital; 19:08 Follow up: IV Status: Completed infusion ke1 Point of Care Testing: Blood Glucose: 13:33 Blood Glucose: 85 mg/dL; ld1 Ranges: Critical Glucose Levels:Adult <50 mg/dl or >400 mg/dl <40 mg/dl or >180 mg/dl Disposition Summary: 01/06/22 19:22 Discharge Ordered Location: Home snw Condition: Stable snw Diagnosis - Headache snw - Bradycardia, unspecified snw Followup: snw - With: Dinah Copeland - When: 2 - 3 days - Reason: Recheck today's complaints, Continuance of care, Re-evaluation by your physician Discharge Instructions: - Discharge Summary Sheet snw - Bradycardia, Adult snw - General Headache Without Cause snw Forms: - Medication Reconciliation Form snw - Thank You Letter snw - Antibiotic Education snw - Prescription Opioid Use snw Prescriptions: - orphenadrine citrate 100 mg Oral Tablet Sustained Release - take 1 tablet by ORAL route 2 times per day As needed; 20 tablet; Refills: 0, snw Product Selection Permitted - promethazine 25 mg Oral Tablet - take 1 tablet by ORAL route every 6 hours As needed; 20 tablet; Refills: 0, snw Product Selection Permitted NIH Stroke Scale - NIH Stroke Score Date: 01/06/2022 Time: 13:50 Total Score = 2 1a. Level of Consciousness (LOC) - 0(Alert) 1b. Level of Consciousness (LOC) (Month \T\ Age) - 0(Both) 1c. LOC Commands (Open \T\ Closes Eyes/Hospice Community Liaison) - 0(Both) 2. Best Gaze (Lateral Gaze Paresis) - 0(Normal) 3. Visual Field Loss - 0(No visual loss) 4. Facial Palsy - 0(Normal) 5a. Left Arm: Motor (10-second hold) - 0(No drift) 5b. Right Arm: Motor (10-second hold) - 1(Drift) 6a. Left Leg: Motor (5-second hold - always test supine) - 0(No drift) 6b. Right Leg: Motor (5-second hold - always test supine) - 1(Drift) 7. Limb Ataxia (finger/nose \T\ heel/arriaga - test with eyes open) - 0(Absent) 8. Sensory Loss (pinprick arms/legs/face) - 0(Normal) 9. Best Language: Aphasia (description/naming/reading) - 0(No aphasia) 10. Dysarthria (speech clarity - read or repeat words) - 0(Normal) 11. Extinction and Inattention (visual/tactile/auditory/spatial/personal) - 0(No abnormality) Initials: ld1 NIH Stroke Scale - NIH Stroke Score Date: 01/06/2022 Time: 19:00 Total Score = 0 1a. Level of Consciousness (LOC) - 0(Alert) 1b. Level of Consciousness (LOC) (Month \T\ Age) - 0(Both) 1c. LOC Commands (Open \T\ Closes Eyes/Hospice Community Liaison) - 0(Both) 2. Best Gaze (Lateral Gaze Paresis) - 0(Normal) 3. Visual Field Loss - 0(No visual loss) 4. Facial Palsy - 0(Normal) 5a. Left Arm: Motor (10-second hold) - 0(No drift) 5b. Right Arm: Motor (10-second hold) - 0(No drift) 6a. Left Leg: Motor (5-second hold - always test supine) - 0(No drift) 6b. Right Leg: Motor (5-second hold - always test supine) - 0(No drift) 7. Limb Ataxia (finger/nose \T\ heel/arriaga - test with eyes open) - 0(Absent) 8. Sensory Loss (pinprick arms/legs/face) - 0(Normal) 9. Best Language: Aphasia (description/naming/reading) - 0(No aphasia) 10. Dysarthria (speech clarity - read or repeat words) - 0(Normal) 11. Extinction and Inattention (visual/tactile/auditory/spatial/personal) - 0(No abnormality) Initials: ke1 Signatures: Dispatcher [employer] EDMS Adrianna Davila, ALEJANDRA-C MAINTENANCE CHIEF-Csnw Joann Fong, RN RN aa5 Jacky Greene RN RN jl7 Margret Rueda RN RN vg1 Palak Mccracken, RN RN bm7 Genna Flores RN tp1 Gricel Jones RN ke1
--- NOTE | 2022-01-06 19:23 | ER ---
Nurse's Notes [facility] Name: Adriel Curry Age: 31 yrs Sex: Female : 1990 Arrival Date: 01/06/2022 Time: 13:08 Bed 2 Private MD: Dinah Copeland Diagnosis: Headache;Bradycardia, unspecified Presentation: 01/06 13:13 Chief complaint: Patient states: I was here two years ago with the same symptoms and I bm7 got sent to [facility] for a brain bleed. At ten last night I started getting a bad headache and my arm is going numb. Coronavirus screen: At this time, the client does not indicate any symptoms associated with coronavirus-19. Ebola Screen: No symptoms or risks identified at this time. Initial Sepsis Screen: Does the patient meet any 2 criteria? No. Patient's initial sepsis screen is negative. Does the patient have a suspected source of infection? No. Patient's initial sepsis screen is negative. Risk Assessment: Do you want to hurt yourself or someone else? Patient reports no desire to harm self or others. Onset of symptoms was January 05, 2022. 13:13 Method Of Arrival: Ambulatory 7 13:13 Acuity: RUFINA 2 bm7 14:24 An acute neurological deficit is present. ld1 14:30 Pre-hospital glucose is not applicable to this patient. ld1 Triage Assessment: 13:15 Headache History: The patient has had previous headaches and this one is similar to bm7 previous episodes. General: Appears in no apparent distress. uncomfortable, Behavior is calm, cooperative. Pain: Complains of pain in forehead. 13:17 Pain: Pain currently is 10 out of 10 on a pain scale. Pain began gradually, Also 7 complains of photophobia, inability to work, inability to perform activities of daily living, sleeplessness. EENT: No deficits noted. No signs and/or symptoms were reported regarding the EENT system. Neuro: Level of Consciousness is awake, alert, obeys commands, Oriented to person, place, time, situation, Clinical Trials Nurse are equal bilaterally Moves all extremities. Gait is steady, Speech is normal, Facial symmetry appears normal, Pupils are PERRLA, Reports blurred vision dizziness, headache paresthesias photophobia. Cardiovascular: No deficits noted. Respiratory: No deficits noted. GI: No deficits noted. No signs and/or symptoms were reported involving the gastrointestinal system. : No deficits noted. No signs and/or symptoms were reported regarding the genitourinary system. Derm: No deficits noted. No signs and/or symptoms reported regarding the dermatologic system. Musculoskeletal: No deficits noted. No signs and/or symptoms reported regarding the musculoskeletal system. 14:24 The onset of the patients symptoms was January 05, 2022 at 10:00. ld1 COMPUTER ENGINEERING TECHNOLOGIST: 18:40 LMP 01/04/2022 tp1 Stroke Activation: Physician: Stroke Attending; Name: ann-marie read; Notified At: ; Arrived At: Physician: Chief Stroke Resident; Name: ; Notified At: ; Arrived At: Physician: Stroke Resident; Name: ; Notified At: ; Arrived At: Physician: ED Attending; Name: ann-marie read; Notified At: 13:16; Arrived At: Physician: ED Resident; Name: ; Notified At: ; Arrived At: Historical: - Allergies: 13:15 Dilaudid; bm7 13:15 Morphine; bm7 13:15 tramadol; bm7 - Home Meds: 13:15 None [Active]; bm7 - PMHx: 13:15 throat mass; Brain Bleed; bm7 - PSHx: 13:15 knee; throat mass removal; bm7 - Immunization history:: Adult Immunizations up to date. - Social history:: Smoking status: Patient denies any tobacco usage or history of. Screenin:23 Abuse screen: Denies threats or abuse. Denies injuries from another. Nutritional ld1 screening: No deficits noted. Tuberculosis screening: No symptoms or risk factors identified. Fall Risk No fall in past 12 months (0 pts). No secondary diagnosis (0 pts). IV access (20 points). Ambulatory Aid- None/Bed Rest/Nurse Assist (0 pts). Gait- Normal/Bed Rest/Wheelchair (0 pts) Mental Status- Oriented to own ability (0 pts). Assessment: 13:30 General: Appears in no apparent distress. uncomfortable, Behavior is calm, cooperative. ld1 Pain: Complains of pain in forehead Pain currently is 10 out of 10 on a pain scale. Neuro: Rice Agitation-Sedation Scale (RASS): 0 - Alert and Calm Level of Consciousness is awake, alert, obeys commands, Oriented to person, place, time, situation, Clinical Trials Nurse are equal bilaterally Moves all extremities. Speech is normal, Facial symmetry appears normal, Pupils are PERRLA, Tingling in left side of face Reports headache photophobia. 13:50 VAN Scoring: Arm Drift: Minor drift Visual Disturbance: No visual disturbance noted. ld1 Aphasia: No aphasia noted. Neglect: No neglect noted. Patient has been NPO before screening. The patient is alert, and able to follow commands. The patient does not exhibit slurred or garbled speech. The patient is not exhibiting difficulty speaking. The patient does not exhibit difficulty understanding words. The patient is able to swallow own secretions with no drooling or need for suction. Patient tolerated one teaspoon of water. No drooling, immediate coughing, gurgling, or clearing of the throat was noted. The patient tolerated 90mL of water. No drooling, immediate coughing, gurgling, or clearing of the throat was noted. The patient passed the bedside swallow screening. Oral medications may be given as ordered. Contact Physician for further diet orders. Provider notified of bedside swallow screening results: Adrianna SOLORZANOP-C. 14:19 Cardiovascular: Reports diaphoresis, lightheadedness, nausea, Denies chest pain, ld1 shortness of breath, Capillary refill < 3 seconds in bilateral fingers. Respiratory: Airway is patent Respiratory effort is even, unlabored. GI: Abdomen is flat, non-distended, Reports nausea. : No signs and/or symptoms were reported regarding the genitourinary system. EENT: No signs and/or symptoms were reported regarding the EENT system. Derm: Skin is diaphoretic, Skin is pink, Skin temperature is warm. Musculoskeletal: Circulation, motion, and sensation intact. 14:30 Reassessment: Patient appears in no apparent distress at this time. No changes from tp1 previously documented assessment. Patient is alert, oriented x 3, equal unlabored respirations, skin warm/dry/pink. Continues to CO head pain. 15:07 Reassessment: Patient is alert, oriented x 3, equal unlabored respirations, skin aa5 warm/dry/pink. Pt assisted to restroom via wheelchair, pt placed back in bed and resting at this time. 15:40 Reassessment: PT appears to be seizing, provider notified. O2 100 %, HR 80. tp1 16:10 Reassessment: Patient appears in no apparent distress at this time. Patient is alert, tp1 oriented x 3, equal unlabored respirations, skin warm/dry/pink. resting in bed with boyfriend at bedside. 17:20 Reassessment: Patient appears in no apparent distress at this time. Patient is alert, tp1 oriented x 3, equal unlabored respirations, skin warm/dry/pink. continues to CO head pain rated 9/10. States " I just dont feel good". provider notified. 18:09 Reassessment: Patient appears in no apparent distress at this time. No changes from jl7 previously documented assessment. Patient and/or family updated on plan of care and expected duration. Pain level reassessed. Patient is alert, oriented x 3, equal unlabored respirations, skin warm/dry/pink. reports headache rated 8/10 with dizziness at this time. 19:00 Neuro: Level of Consciousness is awake, alert, obeys commands, Oriented to person, ke1 place, time, situation. 19:00 VAN Scoring: Arm Drift: Patients demonstrates NO arm weakness. Patient is VAN Negative. ke1 Visual Disturbance: No visual disturbance noted. Aphasia: No aphasia noted. Neglect: No neglect noted. Vital Signs: 13:13 BP 137 / 93; Pulse 72; Resp 16; Temp 98.1(TE); Pulse Ox 100% on R/A; Weight 63.5 kg bm7 (R); Height 5 ft. 3 in. (160.02 cm); Pain 10/10; 14:30 BP 114 / 72; Pulse 54; Resp 19; Pulse Ox 100% on R/A; tp1 15:38 BP 147 / 80; Pulse 81; Resp 18; Pulse Ox 100% on R/A; tp1 16:08 BP 119 / 82; Pulse 47; Resp 14; Pulse Ox 100% on R/A; tp1 17:08 BP 104 / 84; Pulse 62; Resp 15; Pulse Ox 100% on R/A; dh3 17:11 BP 103 / 65; Pulse 57; Resp 18; Temp 98.1; Pulse Ox 100% ; zm 17:24 BP 121 / 82 Supine; Pulse 52; vg1 17:26 BP 125 / 93 Sitting; Pulse 67; vg1 17:28 BP 120 / 92 Standing; Pulse 72; vg1 18:35 BP 113 / 79; Pulse 50; Resp 12; Pulse Ox 99% on R/A; tp1 19:43 BP 115 / 70; Pulse 60; Resp 15; Pulse Ox 99% on R/A; Pain 0/10; ke1 13:13 Body Mass Index 24.80 (63.50 kg, 160.02 cm) bm7 Armour Coma Score: 19:14 Eye Response: spontaneous(4). Verbal Response: oriented(5). Motor Response: obeys snw commands(6). Total: 15. NIH Stroke Scale Scores: 13:50 NIHSS Score: 2 ld1 19:00 NIHSS Score: 0 ke1 ED Course: 13:08 Patient arrived in ED. as 13:15 Triage completed. bm7 13:15 Dinah Copeland is Private Physician. as 13:17 Lia Diaz MD is Attending Physician. sd2 13:17 Arm band placed on left wrist. bm7 13:18 Adrianna Read FNP-C [facility]. snw 13:25 Genna Flores, RN is Primary Nurse. tp1 13:25 Lia Diaz MD is Attending Physician. snw 13:30 Patient has correct armband on for positive identification. Placed in gown. Bed in low ld1 position. Call light in reach. Side rails up X2. Adult w/ patient. 13:30 Client placed on continuous cardiac and pulse oximetry monitoring. NIBP monitoring ld1 applied. 13:37 EKG done, by ED staff, reviewed by Adrianna WHATLEY. em1 13:41 SARS RAPID Sent. ld1 14:04 Inserted saline lock: 20 gauge in left forearm, using aseptic technique. Blood ld1 collected. 17:24 Urine --Ancillary (enter results) Sent. tp1 18:18 Strep swab sent to lab. jl7 18:39 No provider procedures requiring assistance completed. tp1 18:39 Strep Sent. tp1 18:39 CPK Sent. tp1 19:22 Dinah Copeland is Referral Physician. snw 19:42 IV discontinued. ke1 Administered Medications: 14:23 Drug: Keppra (levETIRAcetam) 20 mg/kg Route: IV; Rate: calculated rate; Site: left vg1 forearm; 14:40 Follow up: IV Status: Completed infusion; IV Intake: 100ml vg1 14:55 Drug: Ketorolac 30 mg Route: IVP; Site: left antecubital; aa5 15:06 Follow up: Response: No adverse reaction aa5 15:25 Follow up: Response: Pain is unchanged, physician notified tp1 14:55 Drug: Fioricet - Esgic 325 mg-40 mg-50 mg 1 tab-caps Route: PO; aa5 18:39 Follow up: Response: No adverse reaction tp1 18:08 Drug: Magnesium Sulfate 1 grams Route: IVPB; Infused Over: 1 hrs; Site: left jl7 antecubital; 19:08 Follow up: IV Status: Completed infusion ke1 Medication: 18:10 VIS not applicable for this client. jl7 Point of Care Testing: Blood Glucose: 13:33 Blood Glucose: 85 mg/dL; ld1 Ranges: Intake: 14:40 IV: 100ml; Total: 100ml. vg1 Outcome: 19:22 Discharge ordered by . snw 19:42 Discharged to home ambulatory. ke1 19:42 Condition: good 19:42 Discharge instructions given to patient. 19:48 Patient left the ED. ke1 NIH Stroke Scale - NIH Stroke Score Date: 01/06/2022 Time: 13:50 Total Score = 2 1a. Level of Consciousness (LOC) - 0(Alert) 1b. Level of Consciousness (LOC) (Month \\T\\ Age) - 0(Both) 1c. LOC Commands (Open \\T\\ Closes Eyes/Restoration Silversmith) - 0(Both) 2. Best Gaze (Lateral Gaze Paresis) - 0(Normal) 3. Visual Field Loss - 0(No visual loss) 4. Facial Palsy - 0(Normal) 5a. Left Arm: Motor (10-second hold) - 0(No drift) 5b. Right Arm: Motor (10-second hold) - 1(Drift) 6a. Left Leg: Motor (5-second hold - always test supine) - 0(No drift) 6b. Right Leg: Motor (5-second hold - always test supine) - 1(Drift) 7. Limb Ataxia (finger/nose \\T\\ heel/arriaga - test with eyes open) - 0(Absent) 8. Sensory Loss (pinprick arms/legs/face) - 0(Normal) 9. Best Language: Aphasia (description/naming/reading) - 0(No aphasia) 10. Dysarthria (speech clarity - read or repeat words) - 0(Normal) 11. Extinction and Inattention (visual/tactile/auditory/spatial/personal) - 0(No abnormality) Initials: ld1 NIH Stroke Scale - NIH Stroke Score Date: 01/06/2022 Time: 19:00 Total Score = 0 1a. Level of Consciousness (LOC) - 0(Alert) 1b. Level of Consciousness (LOC) (Month \\T\\ Age) - 0(Both) 1c. LOC Commands (Open \\T\\ Closes Eyes/Restoration Silversmith) - 0(Both) 2. Best Gaze (Lateral Gaze Paresis) - 0(Normal) 3. Visual Field Loss - 0(No visual loss) 4. Facial Palsy - 0(Normal) 5a. Left Arm: Motor (10-second hold) - 0(No drift) 5b. Right Arm: Motor (10-second hold) - 0(No drift) 6a. Left Leg: Motor (5-second hold - always test supine) - 0(No drift) 6b. Right Leg: Motor (5-second hold - always test supine) - 0(No drift) 7. Limb Ataxia (finger/nose \\T\\ heel/arriaga - test with eyes open) - 0(Absent) 8. Sensory Loss (pinprick arms/legs/face) - 0(Normal) 9. Best Language: Aphasia (description/naming/reading) - 0(No aphasia) 10. Dysarthria (speech clarity - read or repeat words) - 0(Normal) 11. Extinction and Inattention (visual/tactile/auditory/spatial/personal) - 0(No abnormality) Initials: ke1 Signatures: Adrianna Read, TEACHER OF THE HANDICAPPED-C TEACHER OF THE HANDICAPPED-Csnw Aurora Stallings Eric em1 Joann Fong, RN RN aa5 Jacky Greene, RN RN jl7 Rajwinder Lopez 3 Margret Rueda RN RN vg1 Palak Mccracken, RN RN bm7 Gabrielle Almeida RN RN ld1 Genna Flores, RENNY RN tp1 Gricel Jones RN RN ke1 Dacia Stallings Stephanie, MD MD sd2 Corrections: (The following items were deleted from the chart) 14: 14:09 General: Appears in no apparent distress. uncomfortable, Behavior is ld1 calm, cooperative, ld1 14: 14:09 Pain: Complains of pain in forehead Pain currently is 10 out of 10 on a ld1 pain scale. ld1 14: 14:09 Neuro: Rice Agitation-Sedation Scale (RASS): 0 - Alert and Calm Level ld1 of Consciousness is awake, alert, obeys commands, Oriented to person, place, time, situation, Clinical Trials Nurse are equal bilaterally Moves all extremities. Speech is normal, Facial symmetry appears normal, Pupils are PERRLA, Tingling in left side of face Reports headache photophobia ld1 16:08 15:40 Reassessment: PT appears to be seizing, provider notified. O2 100 %, HR tp1 80. tp1 19:48 19:35 TNKase (Tenecteplase) Screening: ke1 ke1
[2022-01-06 20:24] VITALS: TEMP 98.1
[2022-01-06 20:34] VITALS: O2SAT 99
[2022-01-06 20:35] VITALS: BP 115/70
--- NOTE | 2022-01-07 07:44 | EKG ---
Test Date: 2022-01-06 Test Time: 13:30:14 Costume Seamstress: SCOTT MEASUREMENT RESULTS: Intervals: Rate: 72 ND: 138 QRSD: 80 QT: 396 QTc: 433 [place]: P: 74 ND: 138 QRS: 70 T: 33 INTERPRETIVE STATEMENTS: Normal sinus rhythm Normal ECG Compared to ECG 03/23/2021 01:54:06 Sinus arrhythmia no longer present T-wave abnormality no longer present Electronically Signed On 01-07-22 07:43:33 CDT by Aroldo Yuan
== END 2022-01-06 19:48 | disposition home or self-care (01) ==
LOC: ER 13:08
DX: R00.1 Bradycardia, unspecified (principal); Z88.6 Allergy status to analgesic agent; R29.702 NIHSS score 2; Z20.822 Contact with and (suspected) exposure to COVID-19
CPT/HCPCS: 93005; 87070; 85025; 80048; 36415; 83735; 82550; 81025; 85610; 82947; 87081; 85730; 81003; 80307; 70496; 70450; 71045; 99284; 87811; J3475; J1953

== ENCOUNTER 2022-04-01 18:49 | Emergency (ER) | payer BC ==
[2022-04-01 20:35] LABS: Absolute Lymphocytes (CBC) 3.4 K/uL (0.7-4.9); Lymphocytes % 31.6 % (15.3-44.8); MCV 91.7 fL (80-100); MPV 8.2 fL (7.6-11.3); RBC Red Blood Cell Count 4.36 M/uL (3.86-4.86)
[2022-04-01 20:38] LABS: Urine Blood Negative (Negative); Urine Glucose Negative (Negative); Urine Protein Negative (Negative); Urine Specific Gravity >=1.030 (1.005-1.030)
[2022-04-01 20:42] LABS: Urine Specific Gravity/Preg >1.030 (1.005-1.030)
[2022-04-01 20:46] LABS: Urine Bacteria None Seen /HPF (<20); Urine Mucus Slight /HPF (None Seen); Urine RBC <5 /HPF (None Seen)
--- NOTE | 2022-04-01 20:55 | RAD REPORT ---
EXAM DESCRIPTION: CTAbdomen Pelvis W Contrast - 04/01/2022 8:46 pm CLINICAL HISTORY: Abdominal pain. RLQ abdominal pain COMPARISON: No comparisons TECHNIQUE: Biphasic CT imaging of the abdomen and pelvis was performed with 100 ml non-ionic IV cont rast. All CT scans are performed using dose optimization technique as appropriate and may include automated exposure control or mA/KV adjustment according to patient size. FINDINGS: The lung bases are clear. The liver, spleen, pancreas, adrenal glands and kidneys are within normal limits. No bowel obstruction, free air, free fluid or abscess. The appendix is normal. No evidence of signi ficant lymphadenopathy. No suspicious bony findings. The liver contains a small 15 mm low-density lesion in the medial right lobe likely benign. The splee n, pancreas, adrenal glands and kidneys are within normal limits. IMPRESSION: No acute intra-abdominal or pelvic finding.
--- NOTE | 2022-04-01 21:01 | ER ---
Nurse's Notes [facility] Name: Adriel Curry Age: 31 yrs Sex: Female : 1990 Arrival Date: 04/01/2022 Time: 18:51 Bed 8 Private MD: Diagnosis: Abdominal pain, unspecified Presentation: 04/01 18:53 Chief complaint: Patient states: RLQ pain that radiates to right flank upon waking hb today. Pt reports she had intercourse last night when she was intoxicated, she does not recall if she took out her tampon and she was not able to find it inside today. Coronavirus screen: At this time, the client does not indicate any symptoms associated with coronavirus-19. Ebola Screen: No symptoms or risks identified at this time. Initial Sepsis Screen: Does the patient meet any 2 criteria? No. Patient's initial sepsis screen is negative. Does the patient have a suspected source of infection? No. Patient's initial sepsis screen is negative. Risk Assessment: Do you want to hurt yourself or someone else? Patient reports no desire to harm self or others. Onset of symptoms was April 01, 2022. 18:53 Method Of Arrival: Ambulatory hb 18:53 Acuity: RUFINA 3 hb SUPERVISOR CHANNEL PROCESS: 21:23 LMP 03/27/2022 Historical: - Allergies: 18:55 Dilaudid; hb 18:55 Morphine; hb 18:55 tramadol; hb - PMHx: 18:55 BRADYCARDIA; Brain bleed; throat mass; hb - PSHx: 18:55 knee; throat mass removal; hb - Immunization history:: Adult Immunizations up to date. - Social history:: Smoking status: Patient denies any tobacco usage or history of. - Family history:: not pertinent. Screenin:22 [facility] ED Fall Risk Assessment (Adult) History of falling in the last 3 months, including since admission No falls in past 3 months (0 pts) Confusion or Disorientation No (0 pts) Intoxicated or Sedated No (0 pts) Impaired Gait No (0 pts) Mobility Assist Device Used No (0 pt) Altered Elimination No (0 pt) Score/Fall Risk Level 0 - 2 = Low Risk. Abuse screen: Denies threats or abuse. Nutritional screening: No deficits noted. Tuberculosis screening: No symptoms or risk factors identified. Assessment: 20:22 General: Appears in no apparent distress. comfortable, well groomed, well developed, kl well nourished, Behavior is. Pain: Complains of pain in right lower quadrant Pain currently is 8 out of 10 on a pain scale. Neuro: No deficits noted. Cardiovascular: No deficits noted. Respiratory: No deficits noted. GI: Reports lower abdominal pain, normal bowel habits, tolerance of fluids, tolerance of food. : No deficits noted. No signs and/or symptoms were reported regarding the genitourinary system. EENT: No deficits noted. No signs and/or symptoms were reported regarding the EENT system. Vital Signs: 18:53 BP 144 / 89; Pulse 73; Resp 16; Temp 97.1; Pulse Ox 100% on R/A; Weight 64.86 kg; hb Height 5 ft. 3 in. (160.02 cm); Pain 6/10; 21:22 BP 118 / 64; Pulse 69; Resp 18; Pulse Ox 99% on R/A; Pain 0/10; kl 18:53 Body Mass Index 25.33 (64.86 kg, 160.02 cm) hb ED Course: 18:51 Patient arrived in ED. mr 18:55 Triage completed. hb 18:55 Arm band placed on. hb 18:58 Myron Pearce MD is Attending Physician. rt 19:30 Inserted saline lock: 20 gauge in left upper arm, using aseptic technique. kl 20:47 CT Abd/Pelvis - IV Contrast Only In Process Unspecified. EDMS 21:23 Patient has correct armband on for positive identification. kl 21:23 No provider procedures requiring assistance completed. IV discontinued, intact, kl bleeding controlled, No redness/swelling at site. Pressure dressing applied. Administered Medications: No medications were administered Medication: 21:22 VIS not applicable for this client. kl Outcome: 21:01 Discharge ordered by . rt 21:23 Discharged to home ambulatory, with family. kl 21:23 Condition: stable 21:23 Discharge instructions given to patient, Instructed on discharge instructions, follow up and referral plans. Demonstrated understanding of instructions, follow-up care. 21:25 Patient left the ED. kl Signatures: Dispatcher [employer] EDMS Darcy Bedoya RN RN kl Rivera, Mary mr Brielle Terrell RN RN Myron Pearce MD MD rt
--- NOTE | 2022-04-01 21:01 | EDPHYS ---
Physician Documentation [facility] Name: Adriel Curry Age: 31 yrs Sex: Female : 1990 Arrival Date: 04/01/2022 Time: 18:51 Bed 8 Private MD: ED Physician Myron Pearce HPI: 04/01 19:06 This 31 yrs old Female presents to ER via Ambulatory with complaints of Pelvic Pain. rt 19:06 The patient presents with abdominal pain right lower quadrant. Onset: The rt symptoms/episode began/occurred today. The symptoms do not radiate. Associated signs and symptoms: Pertinent positives: nausea. The symptoms are described as achy. Modifying factors: The symptoms are alleviated by nothing, the symptoms are aggravated by. Severity of pain: At its worst the pain was moderate in the emergency department the pain has improved. Patient presents to the ED with right lower quadrant pain that started when she woke up at about 1 this afternoon. The patient reported some nausea that is since resolved. Pain is aching nature, nonradiating. The patient states that she had intercourse yesterday, unclear if she left her tampon in or not. The patient was unable to find it earlier today. Denies other acute complaints at this time, symptoms are moderate in severity, no other aggravating leaving factors.. CONVEYOR MONITOR: 21:23 LMP 03/27/2022 kl Historical: - Allergies: 18:55 Dilaudid; hb 18:55 Morphine; hb 18:55 tramadol; hb - PMHx: 18:55 BRADYCARDIA; Brain bleed; throat mass; hb - PSHx: 18:55 knee; throat mass removal; hb - Immunization history:: Adult Immunizations up to date. - Social history:: Smoking status: Patient denies any tobacco usage or history of. - Family history:: not pertinent. ROS: 19:06 Constitutional: Negative for fever, chills, and weight loss, Eyes: Negative for injury, rt pain, redness, and discharge, ENT: Negative for injury, pain, and discharge, Neck: Negative for injury, pain, and swelling, Cardiovascular: Negative for chest pain, palpitations, and edema, Respiratory: Negative for shortness of breath, cough, wheezing, and pleuritic chest pain, : Negative for injury, bleeding, discharge, and swelling, MS/Extremity: Negative for injury and deformity, Skin: Negative for injury, rash, and discoloration, Neuro: Negative for headache, weakness, numbness, tingling, and seizure, Psych: Negative for depression, anxiety, suicide ideation, homicidal ideation, and hallucinations. 19:06 Abdomen/GI: Positive for abdominal pain, nausea. Exam: 19:06 Constitutional: This is a well developed, well nourished patient who is awake, alert, rt and in no acute distress. Head/Face: Normocephalic, atraumatic. Eyes: Pupils equal round and reactive to light, extra-ocular motions intact. Lids and lashes normal. Conjunctiva and sclera are non-icteric and not injected. Cornea within normal limits. Periorbital areas with no swelling, redness, or edema. ENT: Nares patent. No nasal discharge, no septal abnormalities noted. Tympanic membranes are normal and external auditory canals are clear. Oropharynx with no redness, swelling, or masses, exudates, or evidence of obstruction, uvula midline. Mucous membranes moist. Neck: Trachea midline, no thyromegaly or masses palpated, and no cervical lymphadenopathy. Supple, full range of motion without nuchal rigidity, or vertebral point tenderness. No Meningismus. Chest/axilla: Normal chest wall appearance and motion. Nontender with no deformity. No lesions are appreciated. Cardiovascular: Regular rate and rhythm with a normal S1 and S2. No gallops, murmurs, or rubs. Normal PMI, no JVD. No pulse deficits. Respiratory: Lungs have equal breath sounds bilaterally, clear to auscultation and percussion. No rales, rhonchi or wheezes noted. No increased work of breathing, no retractions or nasal flaring. Skin: Warm, dry with normal turgor. Normal color with no rashes, no lesions, and no evidence of cellulitis. MS/ Extremity: Pulses equal, no cyanosis. Neurovascular intact. Full, normal range of motion. Neuro: Awake and alert, GCS 15, oriented to person, place, time, and situation. Cranial nerves II-XII grossly intact. Motor strength 5/5 in all extremities. Sensory grossly intact. Cerebellar exam normal. Normal gait. Psych: Awake, alert, with orientation to person, place and time. Behavior, mood, and affect are within normal limits. 19:06 Abdomen/GI: Mild tenderness of the right lower quadrant without guarding, rebound, distention. 19:33 : Pelvic Exam: External exam: is normal, Speculum exam: no cervicitis, no FB noted on kb exam, the nurse was present for the exam. Vital Signs: 18:53 BP 144 / 89; Pulse 73; Resp 16; Temp 97.1; Pulse Ox 100% on R/A; Weight 64.86 kg; hb Height 5 ft. 3 in. (160.02 cm); Pain 6/10; 21:22 BP 118 / 64; Pulse 69; Resp 18; Pulse Ox 99% on R/A; Pain 0/10; kl 18:53 Body Mass Index 25.33 (64.86 kg, 160.02 cm) hb MDM: 18:59 Patient medically screened. rt 21:03 Differential diagnosis: appendicitis, bowel obstruction, cholecystitis, Ovarian rt Torsion, pancreatitis, Pyelonephritis, Tubal Ovarian Abcess. Data reviewed: vital signs, nurses notes, lab test result(s), EKG, radiologic studies. ED course: Presents to the ED with right lower quadrant pain. The pelvic exam by [employer] Lucien was reportedly unremarkable with no evidence of foreign body. The patient has benign abdominal examination. CT scan, labs are unremarkable. No evidence of UTI. Patient is stable for outpatient care, return precautions discussed.. 04/01 19:05 Order name: CBC with Diff; Complete Time: 20:58 rt 04/01 19:05 Order name: CMP rt 04/01 19:05 Order name: Test, Serum; Complete Time: 20:58 rt 04/01 19:05 Order name: UA MICROSCOPIC; Complete Time: 20:58 rt 04/01 19:05 Order name: Lipase rt 04/01 20:39 Order name: Urine Dipstick-Ancillary; Complete Time: 20:58 EDMS 04/01 19:00 Order name: Pelvic Exam Setup kb 04/01 19:05 Order name: Urine Dipstick-Ancillary (obtain specimen) rt 04/01 19:05 Order name: CT Abd/Pelvis - IV Contrast Only; Complete Time: 20:58 rt 04/01 20:39 Order name: Urine --Ancillary (enter results) wm 04/01 20:42 Order name: Urine --Ancillary EDMS Administered Medications: No medications were administered Disposition: 21:04 Co-signature as Attending Physician, Myron Pearce MD I agree with the assessment and rt plan of care. Disposition Summary: 04/01/22 21:01 Discharge Ordered Location: Home rt Problem: new rt Symptoms: have improved rt Condition: Stable rt Diagnosis - Abdominal pain, unspecified rt Followup: rt - With: Private Physician - When: 2 - 3 days - Reason: Discharge Instructions: - Discharge Summary Sheet rt - Abdominal Pain, Adult rt Forms: - Medication Reconciliation Form rt - Thank You Letter rt - Antibiotic Education rt - Prescription Opioid Use rt Signatures: Dispatcher [employer] Amy Hernandez, JOB HAND-C ALEJANDRA-Brielle Tian RN RN Myron Pearce MD MD rt
[2022-04-01 21:03] LABS: Bilirubin Total 0.9 mg/dL (0.2-1.0); Potassium 3.6 mmol/L (3.5-5.1); Protein, Total 7.8 g/dL (6.4-8.2)
[2022-04-01 21:59] VITALS: TEMP 97.1
[2022-04-01 22:01] VITALS: BP 118/64; O2SAT 99
== END 2022-04-01 21:25 | disposition home or self-care (01) ==
LOC: ER 18:49
DX: R10.31 Right lower quadrant pain (principal); Z88.5 Allergy status to narcotic agent
CPT/HCPCS: 85025; 36415; 84703; 81025; 83690; 80053; 74177; Q9967; 81003; 81015; 99283

== ENCOUNTER 2022-09-11 22:29 | Emergency (ER) | payer BC ==
[2022-09-12] MEDS ORDERED: ONDANSETRON 4 MG/2 ML VIAL ONE (00:49)
[2022-09-12] MEDS ORDERED: MORPHINE 4 MG/ML SYR ONE (00:57)
[2022-09-12 00:58] LABS: Specific Gravity 1.013 (1.005-1.030)
[2022-09-12 01:00] LABS: Specific Gravity 1.013 (1.005-1.030); Urine Bacteria None Seen /HPF (<20); Urine Bilirubin NEGATIVE (Negative); Urine Blood 3+ (OVER) (Negative); Urine Clarity Turbid (Clear); Urine Color Colorless (Yellow); Urine Glucose NEGATIVE (Negative); Urine Protein NEGATIVE (Negative); Urine RBC >50 /HPF (None Seen); Urine Urobilinogen Normal (Normal); Urine pH 6.5 (5.0-7.0)
[2022-09-12 01:02] LABS: Absolute Lymphocytes (CBC) 3.1 K/uL (0.7-4.9); Hematocrit 36.4 % (36.0-45.0); Lymphocytes % 31.6 % (15.3-44.8); MCV 89.5 fL (80-100); MPV 8.9 fL (7.6-11.3); RBC Red Blood Cell Count 4.07 M/uL (3.86-4.86)
[2022-09-12] MEDS ORDERED: FENTANYL CITR 100 MCG/2 ML ONE (01:02)
[2022-09-12 01:30] LABS: Albumin 3.9 g/dL (3.4-5.0); Bilirubin Total 0.6 mg/dL (0.2-1.0); Potassium 3.6 mEq/L (3.5-5.1); Protein, Total 7.6 g/dL (6.4-8.2)
[2022-09-12] MEDS ORDERED: KETOROLAC 30 MG/ML INJ ONE (02:02)
--- NOTE | 2022-09-12 05:09 | EDPHYS ---
Physician Documentation [facility] Name: Adriel Curry Age: 31 yrs Sex: Female : 1990 Arrival Date: 09/11/2022 Time: 22:29 Bed 18 Private MD: ED Physician Tobias Loredo HPI: 09/11 22:45 This 31 yrs old Female presents to ER via Ambulatory with complaints of Abdominal Pain. cp 22:45 The patient presents with abdominal pain in the right upper quadrant. cp Historical: - Allergies: 09/12 00:58 Morphine; jj7 00:58 Dilaudid; jj7 00:58 Tramadol HCl; jj7 - Immunization history:: Adult Immunizations not immunized, Client reports having NOT received the Covid vaccine. - Social history:: Smoking status: Patient denies any tobacco usage or history of. Patient/guardian denies using alcohol, street drugs. ROS: 09/11 22:50 Constitutional: Negative for body aches, chills, fever, poor PO intake. cp 22:50 Respiratory: Negative for cough, shortness of breath, wheezing. cp 22:50 Abdomen/GI: Positive for abdominal pain, nausea, Negative for vomiting, diarrhea, constipation. 22:50 Back: Positive for radiated pain. 22:50 ENT: Negative for ear pain, sore throat, difficulty swallowing, difficulty handling cp secretions. 22:50 Cardiovascular: Negative for chest pain, edema, palpitations. 22:50 : Negative for urinary symptoms. cp 22:50 Neuro: Negative for altered mental status. 22:50 All other systems are negative. Exam: 23:00 Constitutional: This is a well developed, well nourished patient who is awake, alert, cp and in no acute distress. Head/Face: Normocephalic, atraumatic. Eyes: Pupils equal round and reactive to light, extra-ocular motions intact. Lids and lashes normal. Conjunctiva and sclera are not injected. Cornea within normal limits. Periorbital areas with no swelling, redness, or edema. ENT: Nares patent. No nasal discharge, no septal abnormalities noted. Tympanic membranes are normal and external auditory canals are clear. Oropharynx with no redness, swelling, or masses, exudates, or evidence of obstruction, uvula midline. Mucous membranes moist. Neck: Trachea midline, no thyromegaly or masses palpated, and no cervical lymphadenopathy. Supple, full range of motion without nuchal rigidity, or vertebral point tenderness. No Meningismus. Chest/axilla: Normal chest wall appearance and motion. Nontender with no deformity. No lesions are appreciated. Cardiovascular: Regular rate and rhythm with a normal S1 and S2. No gallops, murmurs, or rubs. Normal PMI, no JVD. No pulse deficits. Respiratory: Lungs have equal breath sounds bilaterally, clear to auscultation and percussion. No rales, rhonchi or wheezes noted. No increased work of breathing, no retractions or nasal flaring. Abdomen/GI: Soft, right upper quadrant tenderness no distension or tympany. No guarding or rebound. Back: No spinal tenderness. No costovertebral tenderness. Skin: Warm, dry with normal turgor. Normal color with no rashes, no lesions, and no evidence of cellulitis. MS/ Extremity: Pulses equal, no cyanosis. Neurovascular intact. Full, normal range of motion. Neuro: Awake and alert, GCS 15, oriented to person, place, time, and situation. Cranial nerves II-XII grossly intact. Motor strength 5/5 in all extremities. Sensory grossly intact. Psych: Awake, alert, with orientation to person, place and time. Positive for emotional upset Vital Signs: 22:38 BP 147 / 101; Pulse 81; Resp 22; Temp 97.1; Pulse Ox 100% ; Weight 72.57 kg; Height 5 kl ft. 3 in. ; Pain 9/10; 09/12 01:00 BP 123 / 79; Pulse 53; Resp 17; Pulse Ox 99% ; Pain 8/10; jj7 02:00 BP 135 / 70; Pulse 53; Resp 17; Pulse Ox 99% ; j7 03:00 BP 119 / 72; Pulse 52; Resp 17; Pulse Ox 99% ; 7 04:01 BP 121 / 71; Pulse 51; Resp 18; Pulse Ox 98% ; j7 04:57 BP 135 / 92; Pulse 56; Resp 17; Pulse Ox 100% ; 7 09/11 22:38 Body Mass Index 28.34 (72.57 kg, 160.02 cm) 09/11 22:38 Pain Scale: Adult 09/12 01:00 Pain Scale: Adult jj7 MDM: 09/11 22:54 Patient medically screened. cp 23:00 Differential diagnosis: cholecystitis, Cholelithiasis, pancreatitis, Peptic Ulcer cp Disease, Perf. Duodenal Ulcer, Perf. Gastric Ulcer, Pyelonephritis, Ureterolithiasis, urinary tract infection. 09/12 03:00 Transition of care: After a detail discussion of the patient's case, care is cp transferred to Tobias Loredo MD. 05:01 Data reviewed: vital signs, nurses notes, lab test result(s), radiologic studies, CT sp4 scan. ED course: CT revealed no acute intra-abdominal abnormality.. ED course: Labs today unremarkable. Gallbladder on CT nondistended no pericholecystic fluid. Patient states that her persistent symptoms of pain nausea vomiting. Patient was offered admission to the hospital for pain nausea control and consultation with general surgeon. Patient states that she would rather go home at this time will prescribe as needed pain nausea medicine . Will refer patient to Dr. Noble with Gen Surgery . 05:06 Differential Diagnosis Acute cholecystitis, acute pancreatitis, acute gastroenteritis, sp4 acute gastritis. 05:06 Consideration of Admission/Observation Escalation of care including sp4 admission/observation considered. ED course: We will prescribe tramadol as needed for pain, high-dose ibuprofen, Reglan as well as needed for nausea. Patient at this time stable for discharge home with referral to general surgeon for evaluation for cholecystectomy.. 05:15 ED course: Patient is actually allergic to tramadol so tramadol was substituted for sp4 short course [place] 10 every 6 hours as needed for pain total 20 tablets prescribed. 09/11 22:39 Order name: CBC with Diff; Complete Time: 01:23 cp 09/12 01:40 Interpretation: EOSINOPHIL % 4.9; Reviewed. 09/11 22:39 Order name: CMP; Complete Time: 01:39 cp 09/12 01:39 Interpretation: Normal except: GLUC 110; GFR 87; GLOB 3.7. cp 09/11 22:39 Order name: Lipase; Complete Time: 01:39 cp 09/12 01:39 Interpretation: Reviewed. 09/11 22:39 Order name: Test, Urine; Complete Time: 01:23 cp 09/11 22:39 Order name: Urinalysis w/ reflexes; Complete Time: 01:23 cp 09/12 01:40 Interpretation: Normal except: [facility] Turbid; UBLD 3+ (OVER); URBC >50. cp 09/12 03:02 Order name: Abdomen EDMS 09/11 22:39 Order name: IV Saline Lock; Complete Time: 00:29 cp 09/11 22:39 Order name: Labs collected and sent; Complete Time: 00:57 cp Administered Medications: 01:00 Drug: fentaNYL (PF) IVP 25 mcg Route: IVP; Site: right wrist; jj7 01:00 Drug: Ondansetron IVP 4 mg Route: IVP; Site: right wrist; jj7 02:01 Drug: Ketorolac IVP 15 mg Route: IVP; Site: right wrist; jj7 05:24 Follow up: Response: Pain is decreased jj7 05:35 Drug: [place] PO 10 mg-325 mg 1 tabs Route: PO; jj7 05:38 Follow up: Response: No adverse reaction jj7 05:35 Drug: Ondansetron PO 4 mg Route: PO; jj7 05:38 Follow up: Response: No adverse reaction jj7 05:35 Drug: Ibuprofen PO 600 mg Route: PO; jj7 05:38 Follow up: Response: No adverse reaction jj7 Disposition: 04:45 Co-signature as Attending Physician, Tobias Loredo MD I agree with the assessment sp4 and plan of care. I reviewed the patient's care provided by Advanced Practice Provider \T\ agree w/ the diagnosis \T\ care plan. I personally saw the pt \T\ performed a substantive portion of the visit, incldng all aspects of the (History/Exam/Medical Decision Making). Disposition Summary: 09/12/22 05:08 Discharge Ordered Location: Home sp4 Problem: new sp4 Symptoms: have improved sp4 Condition: Stable sp4 Diagnosis - Upper abdominal pain, unspecified sp4 - Biliary dysmotility sp4 Followup: sp4 - With: Conor Noble MD - When: 1 - 2 days - Reason: Recheck today's complaints Discharge Instructions: - Discharge Summary Sheet sp4 - Biliary Colic, Adult sp4 Forms: - Medication Reconciliation Form sp4 - Prescription Opioid Use sp4 Prescriptions: - Ibuprofen 600 mg Oral Tablet - take 1 tablet by ORAL route every 6 hours As needed take with food; 30 tablet; sp4 Refills: 0, Product Selection Permitted - Reglan 10 mg Oral Tablet - take 1 tablet by ORAL route every 6 hours PRN nausea; 60 tablet; Refills: 0, sp4 Product Selection Permitted Signatures: Dispatcher [employer] EDDarcy Frankel RN Larry Roman PA PA cp Johnson, Juwairiyah, RN RN jj7 Potepalov, Sergey, MD MD sp4 Corrections: (The following items were deleted from the chart) 09/11 22:41 22:39 PMHx: throat mass; [facility] 22:41 22:39 PMHx: Brain bleed; [facility] 22:41 22:39 PMHx: BRADYCARDIA; [facility] 22:41 22:39 PSHx: knee; [facility] 22:41 22:39 PSHx: throat mass removal; [facility] 22:41 22:39 PSHx: c6 c7 dic removal; [facility] 09/12 00:09/11 22:39 Allergies: Morphine [Inactive]; [facility] 09/12 00:09/11 22:39 Allergies: Dilaudid [Inactive]; [facility] 09/12 00:09/11 22:39 Allergies: tramadol [Inactive]; [facility] 09/12 00:09/11 22:39 Home Meds: docusate sodium 100 mg Oral tablet 1 tab 2 times per day j [Inactive]; 09/12 00:09/11 22:39 Home Meds: cephalexin 500 mg Oral capsule every 6 hours [Inactive]; [facility] 09/12 00:09/11 22:39 Home Meds: methocarbamol 750 mg Oral tablet every 8 hours [Inactive]; [facility] 09/12 00:09/11 22:39 Home Meds: hydrocodone-acetaminophen 10-325 mg/15 mL(15 mL) Oral solution [facility] every 4 hours for Pain [Inactive]; 09/13 99:09/11 22:39 Home Meds: Zofran Oral 8 mg every 8 hours [Inactive]; [facility] 09/12 01:40 01:39 Reviewed. cp cp 03:02 01:24 Abdomen Pelvis W Con+CT.RAD.BRZ ordered. EDMS EDMS 09/13 04:47 09/12 05:06 Constitutional: Negative for fever, chills, and weight loss, sp4 cp 09/13 04:47 06 05:06 All other systems are negative, sp4 cp 09/13 04:48 06 05:01 Constitutional: This is a well developed, well nourished patient who is cp awake, alert, and in no acute distress. Head/Face: Normocephalic, atraumatic. Eyes: Pupils equal round and reactive to light, extra-ocular motions intact. Lids and lashes normal. Conjunctiva and sclera are not injected. Cornea within normal limits. Periorbital areas with no swelling, redness, or edema. ENT: Nares patent. No nasal discharge, no septal abnormalities noted. Tympanic membranes are normal and external auditory canals are clear. Oropharynx with no redness, swelling, or masses, exudates, or evidence of obstruction, uvula midline. Mucous membranes moist. Neck: Trachea midline, no thyromegaly or masses palpated, and no cervical lymphadenopathy. Supple, full range of motion without nuchal rigidity, or vertebral point tenderness. No Meningismus. Chest/axilla: Normal chest wall appearance and motion. Nontender with no deformity. No lesions are appreciated. Cardiovascular: Regular rate and rhythm with a normal S1 and S2. No gallops, murmurs, or rubs. Normal PMI, no JVD. No pulse deficits. Respiratory: Lungs have equal breath sounds bilaterally, clear to auscultation and percussion. No rales, rhonchi or wheezes noted. No increased work of breathing, no retractions or nasal flaring. Abdomen/GI: Soft, right upper quadrant tenderness no distension or tympany. No guarding or rebound. Back: No spinal tenderness. No costovertebral tenderness. Skin: Warm, dry with normal turgor. Normal color with no rashes, no lesions, and no evidence of cellulitis. MS/ Extremity: Pulses equal, no cyanosis. Neurovascular intact. Full, normal range of motion. Neuro: Awake and alert, GCS 15, oriented to person, place, time, and situation. Cranial nerves II-XII grossly intact. Motor strength 5/5 in all extremities. Sensory grossly intact. Psych: Awake, alert, with orientation to person, place and time. Positive for emotional upset sp4
--- NOTE | 2022-09-12 05:09 | ER ---
Nurse's Notes [facility] Name: Adriel Curry Age: 31 yrs Sex: Female : 1990 Arrival Date: 09/11/2022 Time: 22:29 Bed 18 Private MD: Diagnosis: Upper abdominal pain, unspecified;Biliary dysmotility Presentation: 09/11 22:38 Chief complaint: Patient states: RUQ pain began x 1 week, increases after meals + kl nausea. Coronavirus screen: Vaccine status: Patient reports being unvaccinated. Ebola Screen: No symptoms or risks identified at this time. 22:38 Method Of Arrival: Ambulatory 22:38 Acuity: RUFINA 4 kl 09/12 00:00 Initial Sepsis Screen: Does the patient meet any 2 criteria? No. Patient's initial jj7 sepsis screen is negative. Does the patient have a suspected source of infection? No. Patient's initial sepsis screen is negative. Risk Assessment: Do you want to hurt yourself or someone else? Patient reports no desire to harm self or others. Historical: - Allergies: 00:58 Morphine; jj7 00:58 Dilaudid; jj7 00:58 Tramadol HCl; jj7 - Immunization history:: Adult Immunizations not immunized, Client reports having NOT received the Covid vaccine. - Social history:: Smoking status: Patient denies any tobacco usage or history of. Patient/guardian denies using alcohol, street drugs. Screenin:00 [facility] ED Fall Risk Assessment (Adult) History of falling in the last 3 months, jj7 including since admission No falls in past 3 months (0 pts) Confusion or Disorientation No (0 pts) Intoxicated or Sedated No (0 pts) Impaired Gait No (0 pts) Mobility Assist Device Used No (0 pt) Altered Elimination No (0 pt) Score/Fall Risk Level 0 - 2 = Low Risk Oriented to surroundings, Maintained a safe environment. Abuse screen: Denies threats or abuse. Nutritional screening: No deficits noted. Tuberculosis screening: No symptoms or risk factors identified. Assessment: 00:00 Reassessment: ASSUMED CARE OF PT. General: Appears in no apparent distress. jj7 uncomfortable, Behavior is cooperative, appropriate for age, crying. Pain: Complains of pain in right upper quadrant Pain currently is 8 out of 10 on a pain scale. GI: Abd is soft X 4 quads Abdomen is tender to palpation in right upper quadrant Reports upper abdominal pain, nausea. Vital Signs: 09/11 22:38 BP 147 / 101; Pulse 81; Resp 22; Temp 97.1; Pulse Ox 100% ; Weight 72.57 kg; Height 5 kl ft. 3 in. ; Pain 9/10; 09/12 01:00 BP 123 / 79; Pulse 53; Resp 17; Pulse Ox 99% ; Pain 8/10; jj7 02:00 BP 135 / 70; Pulse 53; Resp 17; Pulse Ox 99% ; jj7 03:00 BP 119 / 72; Pulse 52; Resp 17; Pulse Ox 99% ; jj7 04:01 BP 121 / 71; Pulse 51; Resp 18; Pulse Ox 98% ; jj7 04:57 BP 135 / 92; Pulse 56; Resp 17; Pulse Ox 100% ; jj7 09/11 22:38 Body Mass Index 28.34 (72.57 kg, 160.02 cm) 09/11 22:38 Pain Scale: Adult 09/12 01:00 Pain Scale: Adult jj7 ED Course: 09/11 22:30 Patient arrived in ED. jj6 22:38 Larry Moss PA is PHCP. cp 22:38 Tobias Loredo MD is Attending Physician. cp 22:39 Triage completed. 09/12 00:00 Patient has correct armband on for positive identification. Call light in reach. Side jj7 rails up X 1. Warm blanket given. 00:00 Arm band placed on right wrist. Patient placed in an exam room, on a stretcher. jj7 00:04 Polo Jaimes RN is Primary Nurse. jj7 00:29 Inserted saline lock: 22 gauge in right wrist, using aseptic technique. bc6 02:32 Missed attempt(s): 22 gauge in right antecubital area. Bleeding controlled, band aid aa9 applied, catheter tip intact. Missed attempt(s): 22 gauge in left antecubital area. Bleeding controlled, band aid applied, catheter tip intact. 03:19 Abdomen In Process Unspecified. EDMS 05:07 Conor Noble MD is Referral Physician. sp4 05:38 No provider procedures requiring assistance completed. IV discontinued, intact, jj7 bleeding controlled, No redness/swelling at site. Pressure dressing applied. Administered Medications: 01:00 Drug: fentaNYL (PF) IVP 25 mcg Route: IVP; Site: right wrist; jj7 01:00 Drug: Ondansetron IVP 4 mg Route: IVP; Site: right wrist; jj7 02:01 Drug: Ketorolac IVP 15 mg Route: IVP; Site: right wrist; jj7 05:24 Follow up: Response: Pain is decreased jj7 05:35 Drug: Blackfoot PO 10 mg-325 mg 1 tabs Route: PO; jj7 05:38 Follow up: Response: No adverse reaction jj7 05:35 Drug: Ondansetron PO 4 mg Route: PO; jj7 05:38 Follow up: Response: No adverse reaction jj7 05:35 Drug: Ibuprofen PO 600 mg Route: PO; jj7 05:38 Follow up: Response: No adverse reaction jj7 Medication: 00:00 VIS not applicable for this client. jj7 Outcome: 05:08 Discharge ordered by sp4 05:38 Discharged to home ambulatory, with significant other. jj7 05:38 Condition: stable 05:38 Discharge instructions given to patient, Instructed on discharge instructions, follow up and referral plans. medication usage, Demonstrated understanding of instructions, follow-up care, medications, Prescriptions given X 3. 05:55 Patient left the ED. jj7 Signatures: Dispatcher [employer] EDMS Darcy Bedoya RN RN kl Page, Corey, PA PA cp Jeffries, Jennifer jj6 Kati Cummings RN RN aa9 Johnson, Juwairiyah, RN RN jj7 Genesis Chaudhary bc6 Tobias Loredo MD MD sp4 Corrections: (The following items were deleted from the chart) 09/11 22:41 22:39 PMHx: throat mass; kl kl 22:41 22:39 PMHx: Brain bleed; kl kl 22:41 22:39 PMHx: BRADYCARDIA; kl kl 22:41 22:39 PSHx: knee; kl kl 22:41 22:39 PSHx: throat mass removal; kl kl 22:41 22:39 PSHx: c6 c7 dic removal; kl kl 09/13 99:09/11 22:39 Allergies: Morphine [Inactive]; [facility] 09/13 99:09/11 22:39 Allergies: Dilaudid [Inactive]; [facility] 09/13 99:09/11 22:39 Allergies: tramadol [Inactive]; j7 09/12 00:09/11 22:39 Home Meds: docusate sodium 100 mg Oral tablet 1 tab 2 times per day jj7 [Inactive]; 09/13 99:09/11 22:39 Home Meds: cephalexin 500 mg Oral capsule every 6 hours [Inactive]; [facility] 09/12 00:09/11 22:39 Home Meds: methocarbamol 750 mg Oral tablet every 8 hours [Inactive]; j7 09/12 00:09/11 22:39 Home Meds: hydrocodone-acetaminophen 10-325 mg/15 mL(15 mL) Oral solution jj7 every 4 hours for Pain [Inactive]; 09/13 99:09/11 22:39 Home Meds: Zofran Oral 8 mg every 8 hours [Inactive]; jj7
[2022-09-12] MEDS ORDERED: HYDROCODONE/APAP 10/325 TAB ONE (05:36)
[2022-09-12] MEDS ORDERED: ONDANSETRON 4 MG (ODT) TAB ONE (05:37)
[2022-09-12] MEDS ORDERED: IBUPROFEN 200 MG TAB PO ONE (05:37)
[2022-09-12 06:01] VITALS: TEMP 97.1
[2022-09-12 06:09] VITALS: BP 135/92; O2SAT 100
--- NOTE | 2022-09-12 11:43 | RAD REPORT ---
EXAM DESCRIPTION: Abdomen Pelvis Wo Contrast CLINICAL HISTORY: 31 years Female ABD PAIN COMPARISON: CT chest abdomen pelvis 07/24/2022. TECHNIQUE: CT of the abdomen and pelvis without contrast. All CT scans at this facility use dose modulation, iterative reconstruction, and/or weight based dosi ng when appropriate to reduce radiation dose to as low as reasonably achievable. FINDINGS: Lower thorax: Lung bases are clear Abdomen: Stomach: Within normal limits Liver: No focal lesions. No intrahepatic ductal distention. Gallbladder: Nondistended Pancreas: Within normal limits Spleen: Within normal limits Right kidney: No hydronephrosis. No renal or ureteral calculi. Left kidney: No hydronephrosis. No renal or ureteral calculi. Adrenal glands: Within normal limits Vascular structures: Within normal limits (although limited evaluation on noncontrast exam). Lymph nodes: No lymphadenopathy by size criteria Pelvis: Small bowel: No significant distention. Appendix: Within normal limits Colon: No distention or acute pericolonic edema. Moderate stool burden. Peritoneum: No free intraperitoneal fluid or air. Bones: No acute bone findings. Bladder: Unremarkable. Reproductive organs: No acute findings. Unchanged postprocedural changes of the bilateral fallopian t ubes. Note that evaluation of the bowel and solid organs is somewhat limited due to lack of intravenous and oral contrast. IMPRESSION: 1. No acute abdominopelvic findings. 2. Moderate stool burden. Electronically signed by: Umesh Mcclure MD 09/12/2022 3:34 AM CDT Due to temporary technical issues with the PACS/Fluency reporting system, reports are being signed by the in house radiologist without review as a courtesy to ensure prompt reporting. The interpreting r adiologist is fully responsible for the content of the report.
== END 2022-09-12 05:55 | disposition home or self-care (01) ==
LOC: ER 22:29
DX: R10.11 Right upper quadrant pain (principal); R11.0 Nausea; K83.8 Other specified diseases of biliary tract; Z88.5 Allergy status to narcotic agent; Z88.8 Allergy status to other drugs, medicaments and biological substances
CPT/HCPCS: 85025; 81001; 36415; 81025; 83690; 80053; 74176; 96375; 96374; 99284; Q0162; J3010; J2405

== ENCOUNTER 2024-05-10 18:59 | Emergency (ER) | payer BC, SELFPAY ==
[2024-05-10] MEDS ORDERED: DIPHENHYDRAMINE 50 MG/ML VIAL ONE (19:20)
[2024-05-10] MEDS ORDERED: KETOROLAC 30 MG/ML INJ ONE (19:20)
[2024-05-10] MEDS ORDERED: NA CHLORIDE 0.9% 1,000 ML ONE (19:21)
[2024-05-10] MEDS ORDERED: METOCLOPRAMIDE 10 MG/2mL INJ ONE (19:21)
[2024-05-10 20:52] LABS: Absolute Eosinophils 0.1 K/uL (0-0.5); Absolute Monocytes 1.4 K/uL (0.1-1.3); Absolute Neutrophil 6.6 K/uL (1.8-8.0); Basophils % 0.5 % (0-1.3); Eosinophils % 1.3 % (0-4.4); Hematocrit 40.1 % (36.0-45.0); Hemoglobin 13.6 g/dL (12.0-15.0); Lymphocytes % 10.5 % (15.3-44.8); MCH 30.4 pg (27.0-35.0); MCHC 33.8 g/dL (32.0-36.0); MCV 90.1 fL (80-100); MPV 8.9 fL (7.6-11.3); Monocytes % 15.4 % (3.3-12.3); Neutrophils % 72.3 % (41.7-73.7); Nucleated Red Blood Cells % 0.1 % (0-0); Platelets 332 thou/uL (152-406); RBC Red Blood Cell Count 4.45 M/uL (3.86-4.86); Red Cell Distribution Width 13.2 % (12.1-15.2)
[2024-05-10 20:53] LABS: Sqamous Epithelial <5 /HPF (None Seen); Urine Bacteria None Seen /HPF (<20); Urine Bilirubin NEGATIVE (Negative); Urine Blood Negative (Negative); Urine Clarity Turbid (Clear); Urine Color Colorless (Yellow); Urine Culture Reflex Order NOT NEEDED; Urine Glucose NEGATIVE (Negative); Urine Ketones 1+ (Negative); Urine Microscopic Reflex YN ORDER UMIC; Urine Nitrite NEGATIVE (Negative); Urine Protein NEGATIVE (Negative); Urine RBC <5 /HPF (None Seen); Urine Urobilinogen Normal (Normal); Urine WBC <5 /HPF (<5); Urine Yeast (Budding) Trace /HPF (None Seen); Urine pH 6.5 (5.0-7.0)
[2024-05-10 21:08] LABS: Albumin 4.1 g/dL (3.4-5.0); Anion Gap 10.5 mEq/L (5.0-15.0); Bilirubin Total 0.9 mg/dL (0.2-1.0); Potassium 3.5 mEq/L (3.5-5.1); Protein, Total 8.1 g/dL (6.4-8.2)
--- NOTE | 2024-05-10 21:52 | RAD REPORT ---
EXAM: Chest Pa And Lat (2 Views) HISTORY: 33 years Female Cough;Fever COMPARISON: 02/21/2024 FINDINGS: LUNGS/PLEURA: The lungs are clear. No pleural effusions or pneumothorax. No pulmonary edema. MEDIASTINUM: The mediastinal silhouette is within normal limits CARDIAC: The cardiac silhouette is within normal limits. UPPER ABDOMEN: No significant abnormality. BONES: No acute abnormality. LINES/TUBES/OTHER: N/A IMPRESSION: No evidence of acute cardiopulmonary disease.
[2024-05-10 22:14] LABS: SARS-CoV-2 Antigen CONTROL BLUE LINE VIS/BG OK; SARS-CoV-2 Antigen Rapid Res Negative (Negative)
--- NOTE | 2024-05-10 22:23 | EDPHYS ---
Physician Documentation [facility] Name: Adriel Curry Age: 33 yrs Sex: Female : 1990 Arrival Date: 05/10/2024 Time: 18:59 Bed 12 Private MD: ED Physician Tobias Loredo HPI: 05/10 19:05 This 33 yrs old Female presents to ER via Unassigned with complaints of Flu sp4 Symptoms, Fever. 22:49 . dr5 23:00 Patient reports flulike symptoms, fever, generalized abdominal pain, headache, night dr5 sweats for the past week. Patient reports she has been taking ibuprofen with mild relief. Patient denies sick contacts.. Historical: - Allergies: 19:09 Dilaudid; cm10 19:09 Morphine; cm10 19:09 Tramadol HCl; cm10 - PMHx: 19:09 Asthma; cm10 - PSHx: 19:09 Cholecystectomy; cm10 - Immunization history:: Adult Immunizations up to date. - Infectious Disease History:: Denies. - Social history:: Smoking status: Patient denies any tobacco usage or history of. ROS: 22:49 Constitutional: as per hpi dr5 23:00 Constitutional: as per hpi dr5 Exam: 23:00 Constitutional: This is a well developed, well nourished patient who is awake, alert, dr5 and in no acute distress. Head/Face: Normocephalic, atraumatic. Eyes: Pupils equal round and reactive to light, extra-ocular motions intact. Lids and lashes normal. Conjunctiva and sclera are non-icteric and not injected. Cornea within normal limits. Periorbital areas with no swelling, redness, or edema. Neck: Trachea midline, no thyromegaly or masses palpated, and no cervical lymphadenopathy. Supple, full range of motion without nuchal rigidity, or vertebral point tenderness. No Meningismus. Chest/axilla: Normal chest wall appearance and motion. Nontender with no deformity. No lesions are appreciated. Cardiovascular: Regular rate and rhythm with a normal S1 and S2. Normal PMI, no JVD. No pulse deficits. Respiratory: Lungs have equal breath sounds bilaterally, clear to auscultation. No rales, rhonchi or wheezes noted. No increased work of breathing, no retractions or nasal flaring. Back: No spinal tenderness. No costovertebral tenderness. Full range of motion. Skin: Warm, dry with normal turgor. Normal color with no rashes, no lesions, and no evidence of cellulitis. MS/ Extremity: Pulses equal, no cyanosis. Neurovascular intact. Full, normal range of motion. Neuro: Awake and alert, GCS 15, oriented to person, place, time, and situation. Cranial nerves II-XII grossly intact. Motor strength 5/5 in all extremities. Sensory grossly intact. Cerebellar exam normal. Normal gait. Vital Signs: 19:10 BP 117 / 90; Pulse 139; Resp 19; Temp 100.1; Pulse Ox 97% on R/A; Weight 72.57 kg; cm10 Height 5 ft. 3 in. ; Pain 10/10; 19:33 Pulse 109; cm10 22:23 BP 112 / 78; Pulse 96; Resp 18; Pulse Ox 98% ; dr5 19:10 Body Mass Index 28.34 (72.57 kg, 160.02 cm) cm10 19:10 Pain Scale: Adult cm10 MDM: 19:11 Medical Screening Exam initiated dr5 23:00 Differential diagnosis: viral Infection, bacterial infection, URI. Data reviewed: vital dr5 signs, nurses notes, lab test result(s), radiologic studies. I considered the following discharge prescriptions or medication management in the emergency department Medications were administered in the Emergency Department. See MAR. Historians other than the Patient: Spouse/Significant Other: . Care significantly affected by the following chronic conditions: Asthma. Care significantly affected by the following Social Determinants of Health: Poor access to healthcare and/or lack of insurance, Poor access to transportation, Problems related to employment. Counseling: I had a detailed discussion with the patient and/or guardian regarding the historical points, exam findings, and any diagnostic results supporting the discharge/admit diagnosis, the presence of at least one elevated blood pressure reading (>120/80) during this emergency department visit, lab results, radiology results, the need for outpatient follow up, for definitive care, a family practitioner, to return to the emergency department if symptoms worsen or persist or if there are any questions or concerns that arise at home. Medication response: Benadryl, Toradol, normal saline. Response to treatment: the patient's symptoms have markedly improved after treatment, the patient's symptoms have resolved after treatment. ED course: Patient is feeling much better after medications. Patient reports her headache has resolved. Patient's vital signs have stabilized. Patient's likely diagnosis is upper respiratory infection/viral infection. Recommended patient increase hydration at home, alternate Tylenol Motrin as needed for pain and fever. Will give patient work note to take a couple days out of work to rest and recuperate. Strict ER precautions given. Discussed all lab results with patient and answered all questions.. 05/10 19:07 Order name: Influenza Screen (a \T\ B); Complete Time: 20:02 sp4 05/10 19:14 Order name: Urinalysis w/ reflexes; Complete Time: 20:54 dr5 05/10 19:14 Order name: Test, Urine; Complete Time: 20:52 dr5 05/10 20:02 Order name: CBC with Diff; Complete Time: 20:52 dr5 05/10 20:02 Order name: CMP; Complete Time: 21:18 dr5 05/10 21:32 Order name: SARS RAPID; Complete Time: 22:19 dr5 05/10 21:29 Order name: Chest Pa And Lat (2 Views) XRAY; Complete Time: 21:53 dr5 Administered Medications: 19:29 Drug: metoCLOPramide IVP 10 mg IVP once; over 1 to 2 minutes Route: IVP; Site: right cm10 wrist; 20:20 Follow up: Response: No adverse reaction cm10 19:30 Drug: NS 0.9% IV 1000 ml IV at 1000 ml once; to be given as a bolus over 60 minutes cm10 Route: IV; Rate: 1000 ml; Site: right wrist; 20:30 Follow up: Response: No adverse reaction; IV Status: Completed infusion; IV Intake: cm10 1000ml 19:30 Drug: Ketorolac IVP 15 mg IVP once Route: IVP; Site: right wrist; cm10 20:20 Follow up: Response: No adverse reaction cm10 19:30 Drug: diphenhydrAMINE IVP 25 mg IVP once Route: IVP; Site: right wrist; cm10 20:20 Follow up: Response: No adverse reaction cm10 Disposition: 05/11 02:57 Co-signature as Attending Physician, Tobias Loredo MD I agree with the assessment sp4 and plan of care. I reviewed the patient's care provided by the Advanced Practice Provider and agree with the diagnosis and treatment plan. Disposition Summary: 05/10/24 22:23 Discharge Ordered Notes: Location: Home dr5 Condition: Stable dr5 Diagnosis - Other viral infections of unspecified site dr5 - Other headache syndrome dr5 Followup: dr5 - With: Emergency Department - When: As needed - Reason: Worsening of condition Followup: dr5 - With: Private Physician - When: 1 - 2 days - Reason: Recheck today's complaints, Continuance of care, Re-evaluation by your physician Discharge Instructions: - Discharge Summary Sheet dr5 - General Headache Without Cause dr5 - Viral Respiratory Infection dr5 Forms: - Work release form dr5 - Medication Reconciliation Form dr5 - Prescription Opioid Use dr5 - Patient Portal Instructions dr5 - Leadership Thank You Letter dr5 Prescriptions: - Tramadol 50 mg Oral tablet - take 1 tablet ORAL route every 8 hours As needed as needed; 12 tablet; Refills: dr5 0, Product Selection Permitted Signatures: Dispatcher [employer] EDMS Tobias Loredo MD MD sp4 Patt Stallings RN RN cm10 Buster Villeda, KNOWLEDGE ENGINEER-C KNOWLEDGE ENGINEER-Cdr5 Corrections: (The following items were deleted from the chart) 05/10 21:29 21:29 Chest Pa And Lat (2 Views)+[email or web address] ordered. EDMS EDMS
--- NOTE | 2024-05-10 22:23 | ER ---
Nurse's Notes [facility] Name: Adriel Curry Age: 33 yrs Sex: Female : 1990 Arrival Date: 05/10/2024 Time: 18:59 Bed 12 Private MD: Diagnosis: Other viral infections of unspecified site;Other headache syndrome Presentation: 05/10 19:10 Chief complaint: Patient states: Fever onset today. Pt also reports headache and RUQ cm10 abdominal pain X1 week. Coronavirus screen: Client denies travel out of the [place] in the last 14 days. Ebola Screen: Patient denies travel to an Ebola-affected area in the 21 days before illness onset. Initial Sepsis Screen: Does the patient meet any 2 criteria? No. Patient's initial sepsis screen is negative. Does the patient have a suspected source of infection? No. Patient's initial sepsis screen is negative. Risk Assessment: Do you want to hurt yourself or someone else? Patient reports no desire to harm self or others. Onset of symptoms was May 10, 2024. 19:10 Method Of Arrival: Wheelchair cm10 19:10 Acuity: RUFINA 3 cm10 Triage Assessment: 19:11 General: Appears uncomfortable, ill, Behavior is crying, restless. Neuro: No deficits cm10 noted. Level of Consciousness is awake, alert, obeys commands, Oriented to person, place, time, situation, Appropriate for age. Respiratory: No deficits noted. Airway is patent Respiratory effort is even, unlabored, Respiratory pattern is regular, symmetrical. Historical: - Allergies: 19:09 Dilaudid; cm10 19:09 Morphine; cm10 19:09 Tramadol HCl; cm10 - PMHx: 19:09 Asthma; cm10 - PSHx: 19:09 Cholecystectomy; cm10 - Immunization history:: Adult Immunizations up to date. - Infectious Disease History:: Denies. - Social history:: Smoking status: Patient denies any tobacco usage or history of. Screenin:[address] [facility] ED Fall Risk Assessment (Adult) History of falling in the last 3 months, cm10 including since admission No falls in past 3 months (0 pts) Confusion or Disorientation No (0 pts) Intoxicated or Sedated No (0 pts) Impaired Gait No (0 pts) Mobility Assist Device Used No (0 pt) Altered Elimination No (0 pt) Score/Fall Risk Level 0 - 2 = Low Risk Oriented to surroundings, Maintained a safe environment, Hourly rounding (assess needs \T\ fall precautionary measures) done. Abuse screen: Denies threats or abuse. Denies injuries from another. Nutritional screening: No deficits noted. Tuberculosis screening: No symptoms or risk factors identified. Assessment: 19:50 Reassessment: Patient is alert, oriented x 3, equal unlabored respirations, skin cm10 warm/dry/pink. Pt sleeping at this time. Patient states feeling better. Patient states symptoms have improved. Vital Signs: 19:10 BP 117 / 90; Pulse 139; Resp 19; Temp 100.1; Pulse Ox 97% on R/A; Weight 72.57 kg; cm10 Height 5 ft. 3 in. ; Pain 10/10; 19:33 Pulse 109; cm10 22:23 BP 112 / 78; Pulse 96; Resp 18; Pulse Ox 98% ; dr5 19:10 Body Mass Index 28.34 (72.57 kg, 160.02 cm) cm10 19:10 Pain Scale: Adult cm10 ED Course: 19:05 Patient arrived in ED. im 19:05 Tobias Loredo MD is Attending Physician. sp4 19:05 Buster Villeda FNP-C is PHCP. dr5 19:05 Attending Physician role handed off by Tobias Loredo MD dr5 19:05 Jose Rodriguez MD is Attending Physician. dr5 19:11 Triage completed. cm10 19:11 Arm band placed on right wrist. Patient placed in an exam room, on a stretcher. cm10 19:18 Patt Stallings, RN is Primary Nurse. cm10 19:30 Influenza Screen (a \T\ B) Sent. cm10 19:30 Initial lab(s) drawn, by me, held in ED. Flu and/or RSV swab sent to lab. Inserted cm10 saline lock: 20 gauge in right wrist, using aseptic technique. Blood collected. Flushed with 10 mL NS. 19:33 Patient has correct armband on for positive identification. Bed in low position. Call cm10 light in reach. Side rails up X2. Provided Education on: ER process and procedures.. Pulse ox on. NIBP on. 21:49 Chest Pa And Lat (2 Views) XRAY In Process Unspecified. EDMS 22:23 Tobias Loredo MD is Attending Physician. dr5 22:29 No provider procedures requiring assistance completed. IV discontinued, intact, ss bleeding controlled, No redness/swelling at site. Pressure dressing applied. Administered Medications: 19:29 Drug: metoCLOPramide IVP 10 mg IVP once; over 1 to 2 minutes Route: IVP; Site: right cm10 wrist; 20:20 Follow up: Response: No adverse reaction cm10 19:30 Drug: NS 0.9% IV 1000 ml IV at 1000 ml once; to be given as a bolus over 60 minutes cm10 Route: IV; Rate: 1000 ml; Site: right wrist; 20:30 Follow up: Response: No adverse reaction; IV Status: Completed infusion; IV Intake: cm10 1000ml 19:30 Drug: Ketorolac IVP 15 mg IVP once Route: IVP; Site: right wrist; cm10 20:20 Follow up: Response: No adverse reaction cm10 19:30 Drug: diphenhydrAMINE IVP 25 mg IVP once Route: IVP; Site: right wrist; cm10 20:20 Follow up: Response: No adverse reaction cm10 Medication: 19:33 VIS not applicable for this client. cm10 Intake: 20:30 IV: 1000ml; Total: 1000ml. cm10 Outcome: 22:23 Discharge ordered by . dr5 22:29 Discharged to home ambulatory, ss 22:29 Condition: good 22:29 Discharge instructions given to patient, significant other, Instructed on discharge instructions, follow up and referral plans. medication usage, Demonstrated understanding of instructions, follow-up care, medications, Prescriptions given X 1, 22:30 Patient left the ED. ss Signatures: Dispatcher [employer] EDVT Gloria Allen RN RN ss Potepalov, Sergey, MD MD sp4 Juani Garcia Clarissa, RN RN cm10 Buster Villeda, STRING WINDING MACHINE OPERATOR-C STRING WINDING MACHINE OPERATOR-[facility] [place]5
[2024-05-10 22:48] VITALS: TEMP 100.1
[2024-05-10 22:54] VITALS: BP 112/78; O2SAT 98
== END 2024-05-10 22:30 | disposition home or self-care (01) ==
LOC: ER 18:59
DX: B34.9 Viral infection, unspecified (principal); G44.89 Other headache syndrome; Z11.52 Encounter for screening for COVID-19
CPT/HCPCS: 96361; 85025; 81001; 36415; 81025; 80053; 87804 ×2; 71046; 96375; 96374; 99284; 87811; J2765; J1200; J7030

== ENCOUNTER 2024-05-12 07:53 | Emergency (ER) | payer BC ==
[2024-05-12] MEDS ORDERED: ACETAMINOPHEN 500 MG TAB ONE (08:22)
[2024-05-12] MEDS ORDERED: NA CHLORIDE 0.9% 1,000 ML ONE (08:22)
[2024-05-12] MEDS ORDERED: dexAMETHasone 10 MG/ML VIAL ONE (08:22)
[2024-05-12] MEDS ORDERED: KETOROLAC 30 MG/ML INJ ONE (08:22)
[2024-05-12 08:52] LABS: Absolute Monocytes 0.9 K/uL (0.1-1.3); Absolute Neutrophil 4.5 K/uL (1.8-8.0); Basophils % 0.5 % (0-1.3); Hematocrit 37.6 % (36.0-45.0); Hemoglobin 12.9 g/dL (12.0-15.0); Lymphocytes % 15.3 % (15.3-44.8); MCH 30.7 pg (27.0-35.0); MCHC 34.4 g/dL (32.0-36.0); MCV 89.3 fL (80-100); MPV 8.8 fL (7.6-11.3); Monocytes % 14.7 % (3.3-12.3); Neutrophils % 69.5 % (41.7-73.7); Nucleated Red Blood Cells % 0.1 % (0-0); Platelets 239 thou/uL (152-406); RBC Red Blood Cell Count 4.21 M/uL (3.86-4.86); Red Cell Distribution Width 13.4 % (12.1-15.2)
[2024-05-12 09:10] LABS: SARS-CoV-2 Antigen CONTROL BLUE LINE VIS/BG OK; SARS-CoV-2 Antigen Rapid Res Negative (Negative)
[2024-05-12 09:10] LABS: Albumin 3.7 g/dL (3.4-5.0); Albumin/Globulin Ratio 0.9 (1.1-1.8); Anion Gap 8.6 mEq/L (5.0-15.0); Bilirubin Total 0.5 mg/dL (0.2-1.0); Globulin 4.1 g/dL (2.3-3.5); Potassium 3.6 mEq/L (3.5-5.1); Protein, Total 7.8 g/dL (6.4-8.2)
--- NOTE | 2024-05-12 11:37 | RAD REPORT ---
EXAMINATION: ONE VIEW CHEST XR CLINICAL INDICATION: Female, 33 years old.,COUGH TECHNIQUE: Frontal chest projection is submitted. Examination is limited by patient positioning and t echnique. COMPARISON: 05/10/2024 FINDINGS: The lungs are well inflated and clear. No pneumothorax or sizable effusion. The heart is normal in s ize. Mediastinal contours are unremarkable. IMPRESSION: No acute intrathoracic abnormalities.
--- NOTE | 2024-05-12 11:55 | ER ---
Nurse's Notes [facility] Name: Adriel Curry Age: 33 yrs Sex: Female : 1990 Arrival Date: 05/12/2024 Time: 07:53 Bed 15 Private MD: Diagnosis: Influenza due to identified novel influenza A virus Presentation: 05/12 08:04 Chief complaint: Patient states: Painful cough, fever, LORENZO, sore throat, nausea since ll1 Saturday. Coronavirus screen: Client denies travel out of the [place] in the last 14 days. congestion, cough unrelated to allergies, fatigue, fever, headache, nausea, sore throat, Client presents with at least one sign or symptom that may indicate coronavirus-19. Standard/surgical mask placed on the client. Ebola Screen: Patient denies travel to an Ebola-affected area in the 21 days before illness onset. Initial Sepsis Screen: Does the patient meet any 2 criteria? Temp <36.0*C (96.8*F)) or > 38.3*C (100.9*F). HR > 90 bpm. Does the patient have a suspected source of infection? No. Patient's initial sepsis screen is negative. Risk Assessment: Do you want to hurt yourself or someone else? Patient reports no desire to harm self or others. Onset of symptoms was May 10, 2024. 08:04 Method Of Arrival: Ambulatory ll1 08:04 Acuity: RUFINA 3 ll1 Historical: - Allergies: 08:04 Dilaudid; ll1 08:04 Morphine; ll1 08:04 Tramadol HCl; ll1 - PMHx: 08:04 Asthma; ll1 - PSHx: 08:04 Cholecystectomy; ll1 - Immunization history:: Adult Immunizations up to date. - Infectious Disease History:: Denies. - Social history:: Smoking status: Patient denies any tobacco usage or history of. - Family history:: not pertinent. Screenin:09 [facility] ED Fall Risk Assessment (Adult) History of falling in the last 3 months, ko1 including since admission No falls in past 3 months (0 pts) Confusion or Disorientation No (0 pts) Intoxicated or Sedated No (0 pts) Impaired Gait No (0 pts) Mobility Assist Device Used No (0 pt) Altered Elimination No (0 pt) Score/Fall Risk Level 0 - 2 = Low Risk Oriented to surroundings, Maintained a safe environment, Educated pt \T\ family on fall prevention, incl call for assistance when getting out of bed, Assessed \T\ reinforced patient's understanding of fall precautions, Provided non-skid footwear, Hourly rounding (assess needs \T\ fall precautionary measures) done. Abuse screen: Denies threats or abuse. Denies injuries from another. Nutritional screening: No deficits noted. Tuberculosis screening: No symptoms or risk factors identified. Assessment: 08:30 General: Appears uncomfortable, Behavior is calm, cooperative. Pain: Pain does not ko1 radiate. Pain began 2-3 days ago. Neuro: No deficits noted. Cardiovascular: No deficits noted. Respiratory: Reports cough that is. GI: No deficits noted. No signs and/or symptoms were reported involving the gastrointestinal system. : No deficits noted. No signs and/or symptoms were reported regarding the genitourinary system. EENT: No deficits noted. No signs and/or symptoms were reported regarding the EENT system. Derm: No deficits noted. No signs and/or symptoms reported regarding the dermatologic system. Musculoskeletal: No deficits noted. No signs and/or symptoms reported regarding the musculoskeletal system. Vital Signs: 08:04 BP 121 / 95; Pulse 111; Resp 18; Temp 103; Pulse Ox 94% on R/A; Weight 72.57 kg; Height ll1 5 ft. 2 in. ; Pain 10/10; 09:47 BP 113 / 79; Pulse 94; Resp 17; Temp 98.3(O); Pulse Ox 97% on R/A; ko1 12:04 BP 112 / 72; Pulse 84; Resp 16; Pulse Ox 96% on R/A; ko1 08:04 Body Mass Index 29.26 (72.57 kg, 157.48 cm) ll1 08:04 Pain Scale: Adult ll1 ED Course: 07:55 Patient arrived in ED. im 07:57 Myron Pearce MD is Attending Physician. rt 08:04 Arm band placed on. ll1 08:07 Triage completed. ll1 08:09 Rosalie Hawkins, RENNY is Primary Nurse. ko1 08:09 Patient has correct armband on for positive identification. Allergy band placed. Bed in ko1 low position. Call light in reach. Side rails up X 1. Provided Education on: labs, meds. Pulse ox on. NIBP on. Door closed. Noise minimized. Lights dimmed. Warm blanket given. Pillow given. 08:09 No provider procedures requiring assistance completed. Patient maintains SpO2 ko1 saturation greater than 95% on room air. 08:10 ED physician to see patient. ko1 08:33 Strep Sent. ko1 08:33 SARS RAPID Sent. ko1 08:33 Influenza Screen (a \T\ B) Sent. ko1 08:33 COVID swab sent to lab. Flu and/or RSV swab sent to lab. Strep swab sent to lab. ko1 08:39 Initial lab(s) drawn, by me, sent to lab. Inserted saline lock: 22 gauge in right ty wrist, using aseptic technique. Blood collected. Flushed with 10 mL NS. 08:44 CMP Sent. ko1 08:44 CBC with Diff Sent. ko1 09:47 Assisted to bathroom. ko1 11:03 Chest Single View XRAY In Process Unspecified. EDMS 12:04 IV discontinued, intact, bleeding controlled, No redness/swelling at site. Pressure ko1 dressing applied. Administered Medications: 08:30 Drug: Acetaminophen PO 1000 mg PO once Route: PO; ko1 09:00 Follow up: Response: No adverse reaction; Temperature is decreased ko1 08:44 Drug: NS 0.9% IV 1000 ml IV at 1 bolus Per protocol; to be given as a bolus over 60 ko1 minutes Route: IV; Rate: 1 bolus; Site: right wrist; 10:54 Follow up: Response: No adverse reaction; IV Status: Completed infusion; IV Intake: ko1 1000ml 08:44 Drug: Ketorolac IVP 30 mg IVP once Route: IVP; Site: right wrist; ko1 08:59 Follow up: Response: No adverse reaction ko1 08:44 Drug: Decadron - Dexamethasone IVP 10 mg IVP once Route: IVP; Site: right wrist; ko1 08:59 Follow up: Response: No adverse reaction ko1 Medication: 08:09 VIS not applicable for this client. ko1 Intake: 10:54 IV: 1000ml; Total: 1000ml. ko1 Outcome: 11:55 Discharge ordered by . rt 12:04 Discharged to home ambulatory, with family, ko1 12:04 Condition: stable 12:04 Discharge instructions given to patient, family, Instructed on discharge instructions, follow up and referral plans. medication usage, Demonstrated understanding of instructions, follow-up care, medications, Prescriptions given X 2, 12:06 Patient left the ED. ko1 Signatures: Dispatcher [employer] EDCristina Frankel RN RN ll1 Rosalie Hawkins RN RN ko1 Myron Pearce MD MD rt Mendoza, Itzel im Yandell, Tylor ty
--- NOTE | 2024-05-12 11:55 | EDPHYS ---
Physician Documentation [facility] Name: Adriel Curry Age: 33 yrs Sex: Female : 1990 Arrival Date: 05/12/2024 Time: 07:53 Bed 15 Private MD: ED Physician Myron Pearce HPI: 05/12 11:04 This 33 yrs old Female presents to ER via Ambulatory with complaints of Flu Symptoms, rt Chest Pain, Shortness Of Breath. 11:04 Patient was seen recently for cough, sore throat. The patient states that her symptoms rt have worsened since leaving. Reports a cough, sore throat, headache. Denies other acute complaints at this time, symptoms are moderate in severity, no other aggravating or elevating factors.. Historical: - Allergies: 08:04 Dilaudid; ll1 08:04 Morphine; ll1 08:04 Tramadol HCl; ll1 - PMHx: 08:04 Asthma; ll1 - PSHx: 08:04 Cholecystectomy; ll1 - Immunization history:: Adult Immunizations up to date. - Infectious Disease History:: Denies. - Social history:: Smoking status: Patient denies any tobacco usage or history of. - Family history:: not pertinent. ROS: 11:04 Constitutional: Negative for fever, chills, and weight loss, Cardiovascular: Negative rt for chest pain, palpitations, and edema, 11:04 ENT: Positive for rhinorrhea, sore throat, 11:04 Respiratory: Positive for cough, Negative for shortness of breath, 11:04 Neuro: Positive for headache, Negative for loss of consciousness, Exam: 11:04 Constitutional: This is a well developed, well nourished patient who is awake, alert, rt and in no acute distress. Head/Face: Normocephalic, atraumatic. Chest/axilla: Normal chest wall appearance and motion. Nontender with no deformity. No lesions are appreciated. Cardiovascular: Regular rate and rhythm with a normal S1 and S2. No gallops, murmurs, or rubs. Normal PMI, no JVD. No pulse deficits. Respiratory: Lungs have equal breath sounds bilaterally, clear to auscultation and percussion. No rales, rhonchi or wheezes noted. No increased work of breathing, no retractions or nasal flaring. Abdomen/GI: Soft, non-tender, with normal bowel sounds. No distension or tympany. No guarding or rebound. No evidence of tenderness throughout. Skin: Warm, dry with normal turgor. Normal color with no rashes, no lesions, and no evidence of cellulitis. MS/ Extremity: Pulses equal, no cyanosis. Neurovascular intact. Full, normal range of motion. Neuro: Awake and alert, GCS 15, oriented to person, place, time, and situation. Cranial nerves II-XII grossly intact. Motor strength 5/5 in all extremities. Sensory grossly intact. Cerebellar exam normal. Normal gait. Vital Signs: 08:04 BP 121 / 95; Pulse 111; Resp 18; Temp 103; Pulse Ox 94% on R/A; Weight 72.57 kg; Height ll1 5 ft. 2 in. ; Pain 10/10; 09:47 BP 113 / 79; Pulse 94; Resp 17; Temp 98.3(O); Pulse Ox 97% on R/A; ko1 12:04 BP 112 / 72; Pulse 84; Resp 16; Pulse Ox 96% on R/A; ko1 08:04 Body Mass Index 29.26 (72.57 kg, 157.48 cm) ll1 08:04 Pain Scale: Adult ll1 MDM: 08:06 Medical Screening Exam initiated rt 12:02 Differential diagnosis: Flu, COVID, strep, pneumonia, upper respiratory infection. Data rt reviewed: vital signs, nurses notes, lab test result(s), radiologic studies. I considered the following discharge prescriptions or medication management in the emergency department Medications were administered in the Emergency Department. See MAR. Independent interpretation of the following test(s) in the Emergency Department X-Ray: My interpretation is No infiltrate seen on interpretation of x-ray images. Test considered but Not performed: CT: Signs and symptoms most consistent with a viral illness, low suspicion for PE, CT angiogram not indicated. Counseling: I had a detailed discussion with the patient and/or guardian regarding the historical points, exam findings, and any diagnostic results supporting the discharge/admit diagnosis, lab results, radiology results, the need for outpatient follow up, to return to the emergency department if symptoms worsen or persist or if there are any questions or concerns that arise at home. Response to treatment: the patient's symptoms have mildly improved after treatment. 05/12 08:14 Order name: Strep rt 05/12 08:14 Order name: CBC with Diff; Complete Time: 10:17 rt 05/12 08:14 Order name: CMP; Complete Time: 10:17 rt 05/12 08:14 Order name: Influenza Screen (a \T\ B); Complete Time: 10:17 rt 05/12 08:14 Order name: SARS RAPID; Complete Time: 10:17 rt 05/12 09:13 Order name: Throat Culture EDMS 05/12 10:17 Order name: Chest Single View XRAY; Complete Time: 11:48 rt Administered Medications: 08:30 Drug: Acetaminophen PO 1000 mg PO once Route: PO; ko1 09:00 Follow up: Response: No adverse reaction; Temperature is decreased ko1 08:44 Drug: NS 0.9% IV 1000 ml IV at 1 bolus Per protocol; to be given as a bolus over 60 ko1 minutes Route: IV; Rate: 1 bolus; Site: right wrist; 10:54 Follow up: Response: No adverse reaction; IV Status: Completed infusion; IV Intake: ko1 1000ml 08:44 Drug: Ketorolac IVP 30 mg IVP once Route: IVP; Site: right wrist; ko1 08:59 Follow up: Response: No adverse reaction ko1 08:44 Drug: Decadron - Dexamethasone IVP 10 mg IVP once Route: IVP; Site: right wrist; ko1 08:59 Follow up: Response: No adverse reaction ko1 Disposition Summary: 05/12/24 11:55 Discharge Ordered Notes: Location: Home rt Problem: an ongoing problem rt Symptoms: have improved rt Condition: Stable rt Diagnosis - Influenza due to identified novel influenza A virus rt Followup: rt - With: Private Physician - When: 2 - 3 days - Reason: Discharge Instructions: - Discharge Summary Sheet rt - Influenza, Adult rt Forms: - Medication Reconciliation Form rt - Antibiotic Education rt - Prescription Opioid Use rt - Patient Portal Instructions rt - Leadership Thank You Letter rt Prescriptions: - Zofran 4 mg Oral Tablet - take 1 tablet ORAL route every 12 hours As needed; 20 tablet; Refills: 0, rt Product Selection Permitted - Tessalon Perles 100 mg Oral Capsule - take 1 capsule ORAL route every 8 hours As needed; 15 capsule; Refills: 0, rt Product Selection Permitted Signatures: Dispatcher [employer] Cristina Garcia RN RN ll1 Rosalie Hawkins, RN RN ko1 Myron Pearce MD MD rt Corrections: (The following items were deleted from the chart) 10:18 10:17 Chest Single View+[email or web address] ordered. EDMS EDMS
[2024-05-12 12:21] VITALS: TEMP 98.3
[2024-05-12 12:26] VITALS: BP 112/72; O2SAT 96
== END 2024-05-12 12:06 | disposition home or self-care (01) ==
LOC: ER 07:53
DX: J10.1 Influenza due to other identified influenza virus with other respiratory manifestations (principal); Z11.52 Encounter for screening for COVID-19
CPT/HCPCS: 96361; 87070; 85025; 36415; 87081; 80053; 87804 ×2; 71045; 96375; 96374; 99284; 87811; J1100; J7030